=== PATIENT | female | born 1965 | race Caucasian/White ===

== ENCOUNTER 2016-12-29 12:33 | Emergency (ER) | payer SELFPAY ==
[~2016-12-29] VITALS: Ht 152.4 cm; Wt 75.5 kg
[2016-12-29 12:34] VITALS: BP 170/100; PULSE 110; RESP 20; TEMP 98.3; O2SAT 96
--- NOTE | 2016-12-29 12:54 | PD ---
HPI Chief Complaint: Cold / Flu Symptoms Time Seen by Provider: 12:54 Travel History International Travel<30 days: No Contact w/Intl Traveler<30days: No Traveled to known affect area: No History of Present Illness HPI 51-year-old female with history of diabetes, hypertension, COPD, presents to emergency department for evaluation of cough and chest congestion with associated back pain. Patient states over the last 4 months she has been diagnosed with both bronchitis and pneumonia. She states her symptoms persist and are beginning to worsen again. She recently traveled here from [place] and is homeless. She has had no fever or chills. No abdominal pain, nausea, vomiting. She has no other symptoms to report. PFSH Past Medical History Diabetes: Yes Respiratory: Yes Social History Alcohol Use: Yes Tobacco Use: Yes Substance Use: No Review of Systems Except as stated in HPI: all other systems reviewed are Neg Physical Exam Narrative GENERAL: Well-nourished female patient, ambulatory and in no acute distress SKIN: Warm and dry. HEAD: Atraumatic. Normocephalic. EYES: Pupils equal and round. No scleral icterus. No injection or drainage. ENT: No nasal bleeding or discharge. Mucous membranes pink and moist. NECK: Trachea midline. No JVD. CARDIOVASCULAR: Tachycardic rate and rhythm. No murmur appreciated. RESPIRATORY: No accessory muscle use. Diminished to auscultation. Breath sounds equal bilaterally. GASTROINTESTINAL: Abdomen soft, non-tender, nondistended. Hepatic and splenic margins not palpable. MUSCULOSKELETAL: No obvious deformities. No clubbing. No cyanosis. No edema. NEUROLOGICAL: Awake and alert. No obvious cranial nerve deficits. Motor grossly within normal limits. Normal speech. Data Data Last Documented VS Vital Signs Date Time Temp Pulse Resp B/P Pulse Ox O2 Delivery O2 Flow Rate FiO2 12/29/16 12:34 98.3 110 20 170/100 96 Room Air Orders Complete Blood Count With Diff (12/29/16 12:57) Basic Metabolic Panel (Bmp) (12/29/16 12:57) Urinalysis - C+S If Indicated (12/29/16 12:57) Chest, Single Ap (12/29/16 ) D-Dimer (12/29/16 12:57) Coag Profile (12/29/16 12:57) Labs Laboratory Tests Test 12/29/16 13:30 White Blood Count 5.7 TH/MM3 Red Blood Count 4.50 MIL/MM3 Hemoglobin 13.8 GM/DL Hematocrit 39.4 % Mean Corpuscular Volume 87.5 FL Mean Corpuscular Hemoglobin 30.7 PG Mean Corpuscular Hemoglobin 35.1 % Concent Red Cell Distribution Width 13.4 % Platelet Count 244 TH/MM3 Mean Platelet Volume 7.2 FL Neutrophils (%) (Auto) 47.3 % Lymphocytes (%) (Auto) 42.5 % Monocytes (%) (Auto) 6.8 % Eosinophils (%) (Auto) 2.8 % Basophils (%) (Auto) 0.6 % Neutrophils # (Auto) 2.7 TH/MM3 Lymphocytes # (Auto) 2.4 TH/MM3 Monocytes # (Auto) 0.4 TH/MM3 Eosinophils # (Auto) 0.2 TH/MM3 Basophils # (Auto) 0.0 TH/MM3 CBC Comment DIFF FINAL Differential Comment Prothrombin Time 10.1 SEC Prothromb Time International 0.9 RATIO Ratio Activated Partial 26.8 SEC Thromboplast Time D-Dimer Quantitative (PE/DVT) 0.22 MG/L FEU Sodium Level 140 MEQ/L Potassium Level 3.8 MEQ/L Chloride Level 105 MEQ/L Carbon Dioxide Level 27.2 MEQ/L Anion Gap 8 MEQ/L Blood Urea Nitrogen 14 MG/DL Creatinine 0.59 MG/DL Estimat Glomerular Filtration 107 ML/MIN Rate Random Glucose 82 MG/DL Calcium Level 9.1 MG/DL MDM Medical Decision Making Medical Screen Exam Complete: Yes Emergency Medical Condition: Yes Medical Record Reviewed: Yes Differential Diagnosis Pneumonia versus influenza versus PE versus COPD exacerbation Narrative Course 51-year-old female presents to emergency department for evaluation. Workup was initiated at triage. 1340 patient states that she does not like to wait for her workup to be complete. I explained the patient that this was only the beginning of her process and that we have no answers in regards to what might the wrong with her. I verbalize concern with her elevated heart rate, recent travel, and shortness of breath with associated back pain. I explained to her that there are multiple etiologies that could be causing her to have these symptoms. She states that she understands and she wants to go anyway. I explained her that if she left it would be AGAINST MEDICAL ADVICE with full understanding that she may worsen, become septic, or even . She verbalizes understanding and chooses to leave at this time. Diagnosis Primary Impression: Shortness of breath Additional Impressions: Cough Tachycardia Back pain Qualified Code: M54.6 - Acute right-sided thoracic back pain Left against medical advice Disposition: 07 AGAINST MEDICAL ADVICE Condition: Stable India Graff Dec 29, 2016 12:54
[2016-12-29 13:41] LABS: AUTOMATED NEUTROPHIL # 2.7 TH/MM3 (1.8-7.7); BASOPHIL % 0.6 % (0.0-2.0); EOSINOPHIL # 0.2 TH/MM3 (0-0.4); EOSINOPHIL % 2.8 % (0.0-4.0); HEMATOCRIT 39.4 % (35.0-46.0); HEMO FLAGS DIFF FINAL; LYMPH % 42.5 % (9.0-44.0); LYMPHOCYTE # 2.4 TH/MM3 (1.0-4.8); MEAN CELL VOLUME 87.5 FL (80.0-100.0); MEAN CORPUSCULAR HEMOGLOBIN 30.7 PG (27.0-34.0); MEAN CORPUSCULAR HGB CONC 35.1 % (32.0-36.0); MONO % 6.8 % (0.0-8.0); NEUT % 47.3 % (16.0-70.0); PLATELET COUNT 244 TH/MM3 (150-450); RED CELL DISTRIBUTION WIDTH 13.4 % (11.6-17.2); WHITE BLOOD COUNT 5.7 TH/MM3 (4.0-11.0)
--- NOTE | 2016-12-29 13:45 | RADRPT ---
EXAM DATE/TIME: 12/29/2016 13:29 [facility] COMPARISON: No previous studies available for comparison. INDICATIONS : Patient has had productive cough and was diagnosed with pneumonia four months ago and states she does n't feel she ever recovered from it. MEDICAL HISTORY : Hypertension. Diabetes mellitus type II. SURGICAL HISTORY : None. ENCOUNTER: Initial ACUITY: 4 - 6 months PAIN SCORE: 0/10 LOCATION: chest FINDINGS: A single view of the chest demonstrates the lungs to be symmetrically aerated without evidence of mas s, infiltrate or effusion. The cardiomediastinal contours are unremarkable. Osseous structures are intact. CONCLUSION: 1. No acute cardiopulmonary findings identified. Van Jose MD on December 29, 2016 at 13:43 Board Certified Radiologist. This report was verified electronically.
[2016-12-29 13:56] LABS: APTT (PATIENT) 26.8 SEC (24.3-30.1); INTERNATIONAL NORMALIZED RATIO 0.9 RATIO; PROTHROMBIN TIME - PATIENT 10.1 SEC (9.8-11.6)
[2016-12-29 13:58] LABS: BICARBONATE 27.2 MEQ/L (21.0-32.0); POTASSIUM 3.8 MEQ/L (3.5-5.1)
== END 2016-12-29 13:40 | disposition left against medical advice (07) ==
LOC: NETRI 12:33
DX: R06.02 Shortness of breath (principal); R05 Cough; R00.0 Tachycardia, unspecified; M54.6 Pain in thoracic spine
CPT/HCPCS: 71010; 80048; 85025; 85379; 85610; 85730; 99283

== ENCOUNTER 2017-01-25 22:58 | Emergency (ER) | payer OTHER ==
[~2017-01-25] VITALS: Ht 152.4 cm; Wt 85.0 kg
[2017-01-25 23:14] VITALS: BP 173/92; PULSE 96; RESP 18; TEMP 98.5; O2SAT 97
[2017-01-25] MEDS ORDERED: METF500T PO (23:19)
[2017-01-25] MEDS ORDERED: ZYPR5TAB PO (23:19)
[2017-01-25] MEDS ORDERED: LISI-515 PO (23:19)
[2017-01-25] MEDS ORDERED: CYMB60CA PO (23:19)
[2017-01-25 23:36] LABS: AUTOMATED NEUTROPHIL # 2.9 TH/MM3 (1.8-7.7); BASOPHIL # 0.1 TH/MM3 (0-0.2); BASOPHIL % 1.2 % (0.0-2.0); EOSINOPHIL # 0.2 TH/MM3 (0-0.4); EOSINOPHIL % 3.3 % (0.0-4.0); HEMATOCRIT 40.2 % (35.0-46.0); HEMO FLAGS DIFF FINAL; LYMPH % 37.7 % (9.0-44.0); LYMPHOCYTE # 2.2 TH/MM3 (1.0-4.8); MEAN CELL VOLUME 88.5 FL (80.0-100.0); MEAN CORPUSCULAR HEMOGLOBIN 30.5 PG (27.0-34.0); MEAN CORPUSCULAR HGB CONC 34.4 % (32.0-36.0); MONO % 8.6 % (0.0-8.0); NEUT % 49.2 % (16.0-70.0); PLATELET COUNT 270 TH/MM3 (150-450); RED BLOOD COUNT 4.53 MIL/MM3 (4.00-5.30); RED CELL DISTRIBUTION WIDTH 13.9 % (11.6-17.2); WHITE BLOOD COUNT 5.9 TH/MM3 (4.0-11.0)
[2017-01-25 23:45] LABS: ACETAMINOPHEN 3.2 MCG/ML (10.0-30.0); ALKALINE PHOSPHATASE 126 U/L (45-117); TOTAL BILIRUBIN ADULT 0.3 MG/DL (0.2-1.0)
[2017-01-25 23:47] LABS: BACTERIA, URINE RARE /hpf; BLOOD, URINE NEG (NEG); COMMENT (UR) CULTURE INDICATED; CULTURE IF INDICATED CULTURE INDICATED; GLUCOSE,URINE NEG (NEG); GRANULAR CAST, URINE 2 /lpf; HYALINE CAST, URINE 1 /lpf (RARE); KETONE, URINE NEG (NEG); MUCUS URINE FEW /lpf (OCC); NITRITE,URINE NEG (NEG); SQUAMOUS EPITHELIAL CELL URINE 5 /hpf (0-5); URINE COLOR YELLOW (YELLW/STRAW)
[2017-01-25 23:49] LABS: AMPHETAMINE, URINE NEG (NEG); BARBITURATES, URINE NEG (NEG); COCAINE, URINE POS (NEG)
--- NOTE | 2017-01-25 23:50 | PD ---
HPI Chief Complaint: Psychiatric Symptoms Time Seen by Provider: 23:48 Travel History International Travel<30 days: No Contact w/Intl Traveler<30days: No Traveled to known affect area: No History of Present Illness HPI Patient comes in under [place] act by police for being depressed and having suicidal thoughts. Patient states she tried hurting herself in the past approximately 10 years ago. Patient states she felt like hurting herself about a week ago but denies this currently. Patient she is just "tired of being tired " and "tired of being homeless". Patient states that she did smoke some crack cocaine today which she does not normally do. Patient denies any medical concerns. Denies any chest pain, fever, shortness of breath, abdominal pain, nausea, or vomiting PFSH Past Medical History Anxiety: Yes Dementia: Yes Diabetes: Yes Patient Takes Glucophage: Yes Diminished Hearing: No Hypertension: Yes Medical other: Yes (PTSD) Respiratory: Yes Tetanus Vaccination: < 5 Years Influenza Vaccination: No ?: Not Menopausal: Yes Past Surgical History Appendectomy: Yes Section: Yes Cholecystectomy: Yes Hysterectomy: Yes Tonsillectomy: Yes Social History Alcohol Use: No (SOBER 19YRS) Tobacco Use: Yes (1PPD) Substance Use: No ("CRACK TODAY AT 1730") Allergies-Medications (Allergen,Severity, Reaction): Coded Allergies: Erythromycin (Verified Allergy, Mild, RASH, 01/25/17) Sulfa (Verified Allergy, Mild, RASH, 01/25/17) Reported Meds & Prescriptions Reported Meds & Active Scripts Active Cipro (Ciprofloxacin HCl) 500 Mg Tab 500 Mg PO BID 7 Days Reported Zyprexa (Olanzapine) 5 Mg Tab 5 Mg PO DAILY Cymbalta DR (Duloxetine HCl) 60 Mg Capdr 60 Mg PO DAILY Lisinopril 20 Mg Tab 20 Mg PO DAILY Metformin (Metformin HCl) 500 Mg Tab 500 Mg PO DAILY With a meal Review of Systems Except as stated in HPI: all other systems reviewed are Neg Physical Exam Narrative GENERAL: Well-developed, overly nourished, in no acute distress, and non-ill appearing. SKIN: Warm and dry. HEAD: Atraumatic. Normocephalic. EYES: Pupils equal and round. EOMI. No scleral icterus. No injection or drainage. ENT: No nasal bleeding or discharge. Mucous membranes pink and moist. NECK: Trachea midline. Supple. No nuclear rigidity. CARDIOVASCULAR: Regular rate and rhythm. No murmur appreciated. RESPIRATORY: No accessory muscle use. No respiratory distress. Clear to auscultation. Breath sounds equal bilaterally. MUSCULOSKELETAL: No obvious deformities. No clubbing. No cyanosis. No edema. Full range of motion. NEUROLOGICAL: Awake and alert. No obvious cranial nerve deficits. Motor grossly within normal limits. Normal speech. PSYCHIATRIC: Appropriate mood and affect. Data Data Last Documented VS Vital Signs Date Time Temp Pulse Resp B/P Pulse Ox O2 Delivery O2 Flow Rate FiO2 01/25/17 23:19 18 01/25/17 23:14 98.5 96 173/92 97 Orders Complete Blood Count With Diff (01/25/17 23:12) Comprehensive Metabolic Panel (01/25/17 23:12) Urinalysis - C+S If Indicated (01/25/17 23:12) Psych Screen (01/25/17 23:12) Drug Screen, Random Urine (01/25/17 23:12) Alcohol (Ethanol) (01/25/17 23:12) Salicylates (Aspirin) (01/25/17 23:12) Tylenol (Acetaminophen) (01/25/17 23:12) Urine Culture (01/25/17 23:30) Acetaminophen (Tylenol) (01/26/17 00:00) Cephalexin (Keflex) (01/26/17 00:00) Labs Laboratory Tests Test 01/25/17 01/25/17 23:19 23:30 White Blood Count 5.9 TH/MM3 Red Blood Count 4.53 MIL/MM3 Hemoglobin 13.8 GM/DL Hematocrit 40.2 % Mean Corpuscular Volume 88.5 FL Mean Corpuscular Hemoglobin 30.5 PG Mean Corpuscular Hemoglobin 34.4 % Concent Red Cell Distribution Width 13.9 % Platelet Count 270 TH/MM3 Mean Platelet Volume 7.3 FL Neutrophils (%) (Auto) 49.2 % Lymphocytes (%) (Auto) 37.7 % Monocytes (%) (Auto) 8.6 % Eosinophils (%) (Auto) 3.3 % Basophils (%) (Auto) 1.2 % Neutrophils # (Auto) 2.9 TH/MM3 Lymphocytes # (Auto) 2.2 TH/MM3 Monocytes # (Auto) 0.5 TH/MM3 Eosinophils # (Auto) 0.2 TH/MM3 Basophils # (Auto) 0.1 TH/MM3 CBC Comment DIFF FINAL Differential Comment Sodium Level 141 MEQ/L Potassium Level 4.0 MEQ/L Chloride Level 105 MEQ/L Carbon Dioxide Level 27.5 MEQ/L Anion Gap 9 MEQ/L Blood Urea Nitrogen 20 MG/DL Creatinine 0.63 MG/DL Estimat Glomerular Filtration 99 ML/MIN Rate Random Glucose 131 MG/DL Calcium Level 9.7 MG/DL Total Bilirubin 0.3 MG/DL Aspartate Amino Transf 27 U/L (AST/SGOT) Alanine Aminotransferase 23 U/L (ALT/SGPT) Alkaline Phosphatase 126 U/L Total Protein 7.3 GM/DL Albumin 4.0 GM/DL Salicylates Level 3.4 MG/DL Acetaminophen Level 3.2 MCG/ML Ethyl Alcohol Level LESS THAN 3 MG/DL Urine Color YELLOW Urine Turbidity CLEAR Urine pH 5.0 Urine Specific [place] 1.023 Urine Protein NEG mg/dL Urine Glucose (UA) NEG mg/dL Urine Ketones NEG mg/dL Urine Occult Blood NEG Urine Nitrite NEG Urine Bilirubin NEG Urine Urobilinogen LESS THAN 2.0 MG/DL Urine Leukocyte Esterase MOD Urine RBC 4 /hpf Urine WBC 24 /hpf Urine Squamous Epithelial 5 /hpf Cells Urine Bacteria RARE /hpf Urine Hyaline Casts 1 /lpf Urine Granular Casts 2 /lpf Urine Mucus FEW /lpf Microscopic Urinalysis Comment CULTURE INDICATED Urine Opiates Screen NEG Urine Barbiturates Screen NEG Urine Amphetamines Screen NEG Urine Benzodiazepines Screen POS Urine Cocaine Screen POS Urine Cannabinoids Screen NEG MDM Medical Decision Making Medical Screen Exam Complete: Yes Emergency Medical Condition: Yes Differential Diagnosis Homicidal, suicidal, electrolyte abnormality, homeless, depression, other Narrative Course Patient was seen and examined. Labs were obtained and reviewed. Patient was given antibiotics for her urinary tract infection and a prescription was provided. Patient medically cleared for further treatment and evaluation by psych. Final disposition per psych. Diagnosis Primary Impression: UTI (urinary tract infection) Qualified Code: N39.0 - Urinary tract infection with hematuria, site unspecified Scripts Ciprofloxacin (Cipro)500 Mg [id number] Mg PO BID 7 Days Ref 0 Prov:Carol Quezada MD 01/26/17 Condition: Stable Bill Uribe Jan 25, 2017 23:49
[2017-01-25 23:52] LABS: ALT (GPT) 23 U/L (10-53); ANION GAP 9 MEQ/L (5-15); AST (GOT) 27 U/L (15-37); BICARBONATE 27.5 MEQ/L (21.0-32.0); BLOOD UREA NITROGEN 20 MG/DL (7-18); CHLORIDE 105 MEQ/L (98-107); GLOMERULAR FILTRATION RATE 99 ML/MIN (>89); SODIUM (NA) 141 MEQ/L (136-145)
[2017-01-26] MEDS ORDERED: CEPHALEXIN MONOHYDRATE 500 MG CAP PO ONE
[2017-01-26] MEDS ORDERED: ACETAMINOPHEN 500 MG CPLT PO ONE
[2017-01-26] MEDS ORDERED: CIPR-9 PO (00:01)
[2017-01-26 06:13] VITALS: BP 139/69; PULSE 99; RESP 19; O2SAT 98
[2017-01-26] MEDS ORDERED: ACETAMINOPHEN 325 MG TAB PO ONE (09:15)
[2017-01-27] MEDS ORDERED: ACETAMINOPHEN 325 MG TAB PO PRN (22:15)
[2017-01-27] MEDS ORDERED: LORazepam 1 MG TAB PO PRN (22:15)
[2017-01-27] MEDS ORDERED: diphenhydrAMINE HCL 50 MG/ML VIAL - HS PRN IM (22:15)
[2017-01-27] MEDS ORDERED: LORazepam 2 MG/ML VIAL IM PRN (22:15)
[2017-01-27] MEDS ORDERED: ALUMINUM/MAGNESIUM/SIMETH 30 ML CUP PO PRN (22:15)
[2017-01-27] MEDS ORDERED: HALOPERIDOL LACTATE 5 MG/ML AMP IM ONE (22:15)
[2017-01-27] MEDS ORDERED: diphenhydrAMINE HCL 50 MG CAP - HS PRN PO (22:15)
[2017-01-27] MEDS ORDERED: LORazepam 2 MG/ML VIAL IM ONE (22:15)
[2017-01-27] MEDS ORDERED: MAGNESIUM HYDROXIDE SUSP 30 ML CUP PO PRN (22:15)
[2017-01-28] MEDS ORDERED: LISINOPRIL 20 MG TAB PO SCH (09:00)
[2017-01-28] MEDS ORDERED: OLANZapine 5 MG TAB PO SCH (09:00)
[2017-01-28] MEDS ORDERED: DULoxetine HCl DR 60 MG CAP PO SCH (09:00)
[2017-01-28] MEDS ORDERED: NICOTINE 21 MG/24 HR PATCH T-DERMAL SCH (09:00)
[2017-01-28] MEDS ORDERED: REMOVE OLD NICOTINE PATCH T-DERMAL SCH (21:00)
== END 2017-01-26 12:35 ==
LOC: NEDAMB 22:58 → NEPJ 01-26 12:35
DX: N39.0 Urinary tract infection, site not specified (principal); E11.9 Type 2 diabetes mellitus without complications; I10 Essential (primary) hypertension; F17.210 Nicotine dependence, cigarettes, uncomplicated
CPT/HCPCS: 80053; 80307; 81001; 85025; 87086; 99285

== ENCOUNTER 2017-01-27 12:01 | Inpatient (IN) | payer MEDICAID ==
[~2017-01-27] VITALS: Ht 152.4 cm; Wt 92.4 kg
[~2017-01-27 12:01] MED LIST: CIPR-9 PO; CYMB60CA PO; LISI-515 PO; METF500T PO; ZYPR5TAB PO
[2017-01-27 12:02] VITALS: BP 173/98; PULSE 106; RESP 24; TEMP 98.1; O2SAT 94
--- NOTE | 2017-01-27 13:50 | PD ---
HPI Chief Complaint: Psychiatric Symptoms Time Seen by Provider: 13:50 Travel History International Travel<30 days: No Contact w/Intl Traveler<30days: No Traveled to known affect area: No History of Present Illness HPI 51-year-old female with a history of hypertension, anxiety, depression, PTSD and mood disorder presents to the emergency department requesting psychiatric evaluation. The patient states that she has been off of her Zyprexa and Cymbalta for the past week and that she has been having suicidal and homicidal ideations. States that she was seen over at [facility] but was told that she was a cocaine abuser and was not given any refills of her medications. She is very frustrated as she does not abuse drugs and really wants her medications refilled. She recently moved here from the area from [place]. She denies any medical complaints. Denies any fever, chills, nausea, vomiting, abdominal pain , chest pain, shortness of breath. Denies any attempts to harm herself. Denies any alcohol or drug use. No other complaints. PFSH Past Medical History Anxiety: Yes Depression: Yes Dementia: Yes Diabetes: Yes Patient Takes Glucophage: Yes Diminished Hearing: No Hypertension: Yes Respiratory: Yes Tetanus Vaccination: < 5 Years Influenza Vaccination: Yes ?: Not Menopausal: Yes Past Surgical History Appendectomy: Yes Section: Yes Cholecystectomy: Yes Hysterectomy: Yes Tonsillectomy: Yes Social History Alcohol Use: No (SOBER 19YRS) Tobacco Use: Yes (1PPD) Substance Use: Yes ("smoked crack the other day") Allergies-Medications (Allergen,Severity, Reaction): Coded Allergies: Erythromycin (Verified Allergy, Mild, RASH, 01/25/17) Sulfa (Verified Allergy, Mild, RASH, 01/25/17) Reported Meds & Prescriptions Reported Meds & Active Scripts Active Reported Zyprexa (Olanzapine) 5 Mg Tab 5 Mg PO DAILY Cymbalta DR (Duloxetine HCl) 60 Mg Capdr 60 Mg PO DAILY Lisinopril 20 Mg Tab 20 Mg PO DAILY Metformin (Metformin HCl) 500 Mg Tab 500 Mg PO DAILY With a meal Review of Systems Except as stated in HPI: all other systems reviewed are Neg Physical Exam Narrative GENERAL: Well-nourished and well-developed pleasant female patient in no acute distress who is nontoxic appearing. SKIN: Warm and dry. HEAD: Normocephalic and atraumatic. EYES: No injection, drainage, or hyphema noted. PERRLA. EOMI. ENT: No nasal drainage noted. Oropharynx is clear. NECK: Supple and the trachea is midline. CARDIOVASCULAR: Regular rate and rhythm. RESPIRATORY: Breath sounds are equal bilaterally with no accessory muscle use, wheezing, rhonchi, or crackles. GASTROINTESTINAL: Abdomen is soft, non-tender, and nondistended. MUSCULOSKELETAL: No obvious deformities, swelling, cyanosis, or ecchymosis is present throughout the upper and lower extremities. Patient has full range of motion without any signs of neurovascular compromise. NEUROLOGICAL: Awake, alert, and oriented. Normal speech and gait. Cranial nerves are grossly intact. Data Data Last Documented VS Vital Signs Date Time Temp Pulse Resp B/P Pulse Ox O2 Delivery O2 Flow Rate FiO2 01/27/17 15:04 88 18 168/95 96 Room Air 01/27/17 12:02 98.1 Orders Complete Blood Count With Diff (01/27/17 13:49) Comprehensive Metabolic Panel (01/27/17 13:49) Psych Screen (01/27/17 13:49) Drug Screen, Random Urine (01/27/17 13:49) Alcohol (Ethanol) (01/27/17 13:49) Diet Regular Basic (01/27/17 Dinner) Labs Laboratory Tests Test 01/27/17 01/27/17 13:54 14:25 Urine Opiates Screen NEG Urine Barbiturates Screen NEG Urine Amphetamines Screen NEG Urine Benzodiazepines Screen POS Urine Cocaine Screen POS Urine Cannabinoids Screen NEG White Blood Count 5.0 TH/MM3 Red Blood Count 4.51 MIL/MM3 Hemoglobin 13.9 GM/DL Hematocrit 40.1 % Mean Corpuscular Volume 88.9 FL Mean Corpuscular Hemoglobin 30.7 PG Mean Corpuscular Hemoglobin 34.6 % Concent Red Cell Distribution Width 14.0 % Platelet Count 253 TH/MM3 Mean Platelet Volume 7.0 FL Neutrophils (%) (Auto) 50.5 % Lymphocytes (%) (Auto) 38.5 % Monocytes (%) (Auto) 7.7 % Eosinophils (%) (Auto) 2.5 % Basophils (%) (Auto) 0.8 % Neutrophils # (Auto) 2.5 TH/MM3 Lymphocytes # (Auto) 1.9 TH/MM3 Monocytes # (Auto) 0.4 TH/MM3 Eosinophils # (Auto) 0.1 TH/MM3 Basophils # (Auto) 0.0 TH/MM3 CBC Comment DIFF FINAL Differential Comment Sodium Level 139 MEQ/L Potassium Level 3.6 MEQ/L Chloride Level 101 MEQ/L Carbon Dioxide Level 30.1 MEQ/L Anion Gap 8 MEQ/L Blood Urea Nitrogen 22 MG/DL Creatinine 0.52 MG/DL Estimat Glomerular Filtration 124 ML/MIN Rate Random Glucose 79 MG/DL Calcium Level 10.0 MG/DL Total Bilirubin 0.4 MG/DL Aspartate Amino Transf 16 U/L (AST/SGOT) Alanine Aminotransferase 23 U/L (ALT/SGPT) Alkaline Phosphatase 94 U/L Total Protein 7.0 GM/DL Albumin 3.9 GM/DL Ethyl Alcohol Level LESS THAN 3 MG/DL [facility] Medical Decision Making Medical Screen Exam Complete: Yes Emergency Medical Condition: Yes Differential Diagnosis Differential: Depression versus adjustment reaction versus anxiety versus PTSD versus psychosis NOS versus mood disorder NOS versus substance induced mood disorder versus ODD versus adjustment reaction versus schizophrenia versus bipolar disorder versus schizoaffective versus electrolyte abnormality Narrative Course Patient presents under a Tucker act. Physical examination and vital signs are essentially unremarkable. Patient has no medical complaints to report. He moved to the area and is out of her medications and is homeless. She is requesting something to eat. Psych screen has been ordered. CBC and CMP are unremarkable. EtOH is less than 3. Urine tox is positive for benzodiazepines and cocaine. The patient is medically cleared for psychiatric evaluation and disposition. Diagnosis Primary Impression: Substance induced mood disorder Merced Johnson Jan 27, 2017 13:50
[2017-01-27 13:54] VITALS: PULSE 105; RESP 20; O2SAT 96
[2017-01-27 14:41] LABS: AMPHETAMINE, URINE NEG (NEG); BARBITURATES, URINE NEG (NEG); COCAINE, URINE POS (NEG)
[2017-01-27 14:54] LABS: AUTOMATED NEUTROPHIL # 2.5 TH/MM3 (1.8-7.7); BASOPHIL % 0.8 % (0.0-2.0); EOSINOPHIL # 0.1 TH/MM3 (0-0.4); EOSINOPHIL % 2.5 % (0.0-4.0); HEMATOCRIT 40.1 % (35.0-46.0); HEMO FLAGS DIFF FINAL; LYMPH % 38.5 % (9.0-44.0); LYMPHOCYTE # 1.9 TH/MM3 (1.0-4.8); MEAN CELL VOLUME 88.9 FL (80.0-100.0); MEAN CORPUSCULAR HEMOGLOBIN 30.7 PG (27.0-34.0); MEAN CORPUSCULAR HGB CONC 34.6 % (32.0-36.0); MONO % 7.7 % (0.0-8.0); NEUT % 50.5 % (16.0-70.0); PLATELET COUNT 253 TH/MM3 (150-450); RED BLOOD COUNT 4.51 MIL/MM3 (4.00-5.30)
[2017-01-27 15:04] VITALS: BP 168/95; PULSE 88; RESP 18; O2SAT 96
[2017-01-27 15:14] LABS: ALT (GPT) 23 U/L (10-53); ANION GAP 8 MEQ/L (5-15); AST (GOT) 16 U/L (15-37); BICARBONATE 30.1 MEQ/L (21.0-32.0); BLOOD UREA NITROGEN 22 MG/DL (7-18); CHLORIDE 101 MEQ/L (98-107); GLOMERULAR FILTRATION RATE 124 ML/MIN (>89); POTASSIUM 3.6 MEQ/L (3.5-5.1); SODIUM (NA) 139 MEQ/L (136-145)
[2017-01-27 15:16] LABS: ALKALINE PHOSPHATASE 94 U/L (45-117); TOTAL BILIRUBIN ADULT 0.4 MG/DL (0.2-1.0)
[2017-01-27] MEDS ORDERED: ACETAMINOPHEN 500 MG CPLT PO ONE (17:15)
[2017-01-27 17:58] VITALS: BP 109/75; PULSE 99; RESP 18; O2SAT 97
[2017-01-27] MEDS ORDERED: OLANZapine 10 MG TAB PO ONE (18:00)
[2017-01-27] MEDS ORDERED: IBUPROFEN 800 MG TAB PO ONE (19:15)
[2017-01-27] MEDS ORDERED: OLANZapine IM 10 MG VIAL IM ONE (20:45)
[2017-01-27] MEDS ORDERED: HALOPERIDOL LACTATE 5 MG/ML AMP IM SCH (21:35)
[2017-01-27] MEDS ORDERED: LORazepam 2 MG/ML VIAL IM SCH (21:35)
[2017-01-27 22:13] VITALS: RESP 19
[2017-01-27 22:30] VITALS: BP 146/97; PULSE 100; RESP 18; TEMP 97.8; O2SAT 99
[2017-01-27] MEDS ORDERED: MAGNESIUM HYDROXIDE SUSP 30 ML CUP PO PRN (23:15)
[2017-01-27] MEDS ORDERED: diphenhydrAMINE HCL 50 MG/ML VIAL - HS PRN IM (23:15)
[2017-01-27] MEDS ORDERED: ALUMINUM/MAGNESIUM/SIMETH 30 ML CUP PO PRN (23:15)
[2017-01-27] MEDS ORDERED: LORazepam 2 MG/ML VIAL IM PRN (23:15)
[2017-01-27] MEDS: diphenhydrAMINE HCL 50 MG CAP - HS PRN PO (23:23)
[2017-01-27] MEDS: LORazepam 1 MG TAB PO PRN (23:23)
[2017-01-28 06:02] VITALS: BP 156/63; PULSE 100; RESP 18; TEMP 98; O2SAT 99
[2017-01-28 07:07] LABS: ANION GAP 7 MEQ/L (5-15); BICARBONATE 32.4 MEQ/L (21.0-32.0); CHLORIDE 103 MEQ/L (98-107); GLOMERULAR FILTRATION RATE 127 ML/MIN (>89); MAGNESIUM 1.6 MG/DL (1.5-2.5); POTASSIUM 4.1 MEQ/L (3.5-5.1); SODIUM (NA) 142 MEQ/L (136-145)
[2017-01-28 07:33] LABS: BLOOD UREA NITROGEN 23 MG/DL (7-18); FREE T4 0.88 NG/DL (0.76-1.46); HDL CHOLESTEROL 57.9 MG/DL (40.0-60.0); LDL CHOLESTEROL 113 MG/DL (0-99); URIC ACID 4.4 MG/DL (2.6-6.0)
[2017-01-28 07:41] LABS: CREATINE KINASE 55 U/L (26-192)
[2017-01-28] MEDS: DULoxetine HCl DR 60 MG CAP PO SCH (08:50)
[2017-01-28] MEDS: LISINOPRIL 20 MG TAB PO SCH (08:51)
[2017-01-28] MEDS: NICOTINE 21 MG/24 HR PATCH T-DERMAL SCH (08:51)
[2017-01-28] MEDS: LORazepam 1 MG TAB PO PRN ×3 (08:55→17:50)
[2017-01-28] MEDS ORDERED: metFORMIN HCL 500 MG TAB PO SCH (09:00)
--- NOTE | 2017-01-28 12:07 | HHI.HP ---
Provisional Diagnosis Admission Date Jan 27, 2017 at 21:55 Certification of Person's Competence To Provide Express and Informed Consent I have personally examined Claire Phelps , a person being served at [facility] on, Jan 28, 2017 12:07. Express and informed consent means consent voluntarily given in writing, by a competent person, after sufficient explanation and disclosure of the subject matter involved to enable the person to make a knowing and willful decision without any element of force, fraud, deceit, duress, or other form of constraint or coercion. This person is 18 years of age or older, is not now known to be incompetent to consent to treatment with a guardian advocate, and does not have a health care surrogate or proxy currently making medical treatment decisions. I have found this person to be one of the following: [] Competent to provide express and informed consent, as defined above, for voluntary admission to this facility and is competent to provide express and informed consent for treatment. He/she has the consistent capacity to make well reasoned, willful, and knowing decisions concerning his or her medical or mental health treatment. The person fully and consistently understands the purpose of the admission for examination/placement and is fully capable of personally exercising all rights assured [place] [] Incompetent to provide express and informed consent to voluntary admission, and this is incompetent to provide express and informed consent to treatment. The person must be transferred to involuntary status and a petition for a guardian advocate filed with the Circuit Court. [] Refusing to provide express and informed consent to voluntary admission but is competent to provide express and informed consent for treatment. The person must be discharged or transferred to involuntary status. Form shall be completed within 24 hours of a person's arrival at the receiving facility and filed in the clinical record of each person: 1. Admitted on a voluntary basis 2. Permitted to provide express and informed consent to his/her own treatment 3. Allowed to transfer from involuntary to voluntary status 4. Prior to permitting a person to consent to his or her own treatment after having been previously found incompetent to consent to treatment. Past Family Social History Coded Allergies: Erythromycin (Verified Allergy, Mild, RASH, 01/25/17) Sulfa (Verified Allergy, Mild, RASH, 01/25/17) Reported Medications Olanzapine (Zyprexa)5 Mg Tab5 Mg PO DAILY #30 TAB Ref 0 01/25/[address] (Cymbalta DR)60 Mg Capdr60 Mg PO DAILY #30 CAP Ref 0 01/25/17 Lisinopril 20 Mg Tab20 Mg PO DAILY #30 TAB Ref 0 01/25/17 Metformin 500 Mg [id number] Mg PO DAILY #30 TAB Ref 0 With a meal 01/25/17 Discontinued Scripts Ciprofloxacin (Cipro)500 Mg [id number] Mg PO BID 7 Days Ref 0 Prov:Carol Quezada MD 01/26/17 Current Medications Medications (Trade) Dose Ordered Sig/Diana Route Start Time Stop Time Status Last Admin (Glucophage) 500 mg DAILY PO 01/28/17 09:00 01/28/17 08:50 (Prinivil) 20 mg DAILY PO 01/28/17 09:00 01/28/17 08:51 (Cymbalta Dr) 60 mg DAILY PO 01/28/17 09:00 01/28/17 08:50 (Ativan) 1 mg Q6H PRN PO 01/27/17 23:15 01/28/17 08:55 (Ativan Inj) 1 mg Q6H PRN IM 01/27/17 23:15 (Benadryl) 50 mg HS PRN PO 01/27/17 23:15 01/27/17 23:23 (Benadryl Inj) 50 mg HS PRN IM 01/27/17 23:15 (Tylenol) 650 mg Q4H PRN PO 01/27/17 23:15 (Milk Of Magnesia Liq) 30 ml DAILY PRN PO 01/27/17 23:15 (Mag-Al Plus Susp Liq) 30 ml Q6H PRN PO 01/27/17 23:15 (Habitrol 21 Mg Patch.24 Hr) 1 patch DAILY T-DERMAL 01/28/17 09:00 Miscellaneous Information 1 HS T-DERMAL 01/28/17 21:00 Physical Exam Vital Signs Vital Signs Date Time Temp Pulse Resp B/P Pulse Ox O2 Delivery O2 Flow Rate FiO2 01/28/17 06:02 98.0 100 18 156/63 99 01/27/17 22:13 Room Air Assessment & Plan Assessment & Plan Estimated LOS: Alcon Dixon MD Jan 28, 2017 12:07
[2017-01-28] MEDS ORDERED: LORazepam 2 MG TAB PO PRN (12:15)
[2017-01-28] MEDS ORDERED: FLUMAZENIL 0.5 MG/5 ML VIAL IV PUSH PRN (12:15)
[2017-01-28] MEDS ORDERED: LORazepam 2 MG/ML VIAL IV PUSH PRN ×4 (12:15)
[2017-01-28] MEDS: hydrOXYzine HCL 50 MG TAB PO PRN (12:24)
--- NOTE | 2017-01-28 12:42 | MH ---
cc: BRYONTESSY DATE OF ADMISSION 01/27/2017 ADMISSION DIAGNOSES 1. Adjustment disorder with disturbance of emotions and conduct, F43.25 2. Cocaine abuse, F14.10 3. Rule out borderline intellectual functioning. LEGAL STATUS The patient is presently capacitated to consent for medications and for admission. Voluntary status. HISTORY OF PRESENT ILLNESS Ms. Phelps is a 51-year-old female with a reported history of depression and anxiety who presented to the emergency department requesting psychiatric evaluation. She told the ED provider that she had been off of her Zyprexa and Cymbalta for a week and was having suicidal and homicidal ideations. She apparently went to [facility] and had a poor interaction with a staff member there and so came to our ED instead. Reviewing the electronic medical record, I see no prior psychiatric contact within our system. I do see that the patient was somewhat agitated overnight and required Zyprexa p.r.n. The patient seen and examined with nurse. Chart reviewed. Case discussed with nursing staff. 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 She tells me "I just need to get back on my meds." Her speech is a little bit pressured and rambling and she complains of feeling somewhat anxious. She also complains of irritability. She does not describe any suicidal or homicidal ideation at this time, but says that she might have been experiencing some of these last night. She is fairly benzodiazepine seeking and says that the Xanax that she used to take really helped with this problem. She denies any audiovisual hallucinations and I can elicit no delusional beliefs. The remainder of the psychiatric ROS is negative. PAST PSYCHIATRIC HISTORY The patient reports a history of depression and anxiety. She previously followed at [facility], but wants to get a new psychiatrist. She says that she has done the best in the past on Zyprexa, but has also tried Abilify and loxapine. Unclear regarding prior psychiatric hospitalizations, the patient is a fairly poor historian. The patient removed reports one remote suicide attempt by trying to cut herself with a butter knife. FAMILY HISTORY The patient reports anxiety and depression runs in her family and her mother, sister and brother. She has another brother who has been diagnosed with Down's syndrome. CHEMICAL DEPENDENCY HISTORY The patient admits to occasional use of benzodiazepines and also says that she "dabbles" in cocaine. SOCIAL HISTORY The patient is presently homeless. She says that her mother when the patient was 17 years old. She has a tenth grade education but subsequently got her GED. She is . She has two children. Denies any or legal history. Denies any access to guns or firearms. PAST MEDICAL HISTORY Includes a history of: 1. Type 2 diabetes 2. COPD 3. ANANT and macular degeneration. REVIEW OF SYSTEMS No reported headache, vision or hearing changes, chest pain, shortness of breath, bowel issues. The patient does complain of some urinary malodor, but denies any dysuria or other urinary symptoms. PHYSICAL EXAMINATION A physical examination was completed in the emergency room by the ER staff. On my examination today, the patient appears to be well-nourished and well-developed and in no acute physical distress. No motor abnormalities noted. VITAL SIGNS: Reviewed. Temperature is 98, pulse is 100, respirations 18, blood pressure 156/63, pulse oximetry 99% on room air. LABORATORIES REVIEWED: CBC unremarkable. CMP rather fairly unremarkable. Vitamin D level somewhat low at 27.4. TFT is okay. Toxicology was positive for cocaine and benzodiazepines. Alcohol level was undetectable. MENTAL STATUS EXAM The patient is in hospital gown. She is somewhat disheveled, but appears to be maintaining basic hygiene. She is awake and alert and oriented to person and hospital at least. No motor abnormalities noted. No benzodiazepine withdrawal signs noted. Speech is somewhat pressured and rambling. Language and fund of knowledge seem reduced for age. Mood is somewhat irritable and affect is anxious. Thought process linear, but somewhat childlike. No loosening of associations. No evident delusions. Denies audiovisual hallucinations. Denies suicidal or homicidal ideation at this time, but was apparently threatening the same yesterday. Insight and judgment are poor. ASSESSMENT/PLAN This is a 51-year-old female with psychiatric history as noted above who presents on a voluntary basis for psychiatric evaluation. The patient seems to have some degree of borderline intellectual functioning or intellectual disability, but complains chiefly of irritability and anxiety. She says that she has also been using cocaine. 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 She says that she has done well in the past on Zyprexa. I will admit the patient briefly to the inpatient psychiatric unit for safety, observation and stabilization. Admit inpatient. Voluntary status. Consult to the hospitalist. I will check another urinalysis as the patient reports urinary malodor. Initiate Zyprexa 10 mg at bedtime. Continue Cymbalta 60 mg daily. We settle on Atarax as needed for anxiety, Benadryl as needed for sleep. CIWA with Ativan for the management of any withdrawal from benzodiazepines. Seizure and fall precautions. Vitals every shift. Counselor to see. Disposition planning. Estimated length of stay: 3-5 days. Tessy GAMING /12:15 PM /12:31 PM TANG
[2017-01-28 13:54] LABS: BLOOD, URINE NEG (NEG); COMMENT (UR) CULT NOT INDICATED; CULTURE IF INDICATED CULT NOT INDICATED; GLUCOSE,URINE NEG (NEG); KETONE, URINE NEG (NEG); MUCUS URINE FEW /lpf (OCC); NITRITE,URINE NEG (NEG); PH, URINE 6.5 (5.0-8.5); SQUAMOUS EPITHELIAL CELL URINE 1 /hpf (0-5); URINE COLOR LIGHT-YELLOW (YELLW/STRAW)
--- NOTE | 2017-01-28 14:29 | PD.CONS ---
HPI [facility] Consult Requested By Dr. Rodriguez Reason for Consult Medical management Primary Care Physician No Primary Care Physician Diagnoses: History of Present Illness 51-year-old female with a reported history of depression, PTSD, hypertension, COPD, anxiety, depression, diabetes admitted to the psychiatric unit. On presentation to the emergency room, she reported suicidal ideation. The patient is seen in the psychiatric unit. She does not have any specific complaint at this time. She reports she was treated for UTI 3 days ago. She complained of concentrated urine. However Currently denies any dysuria, suprapubic pain, or fever. The patient apparently was positive for benzodiazepine and cocaine on a toxicology screen. She has not been compliant with any of her chronic medications. Currently she denies chest pain or shortness of breath. She inquired about her abdominal hernia and wondered if she could get it fixed while she is here. She denies any abdominal pain or problems with constipation or diarrhea. Review of Systems Psychiatric: COMPLAINS OF: Mood changes, Suicidal Ideation Past Family Social History Allergies: Coded Allergies: Erythromycin (Verified Allergy, Mild, RASH, 01/25/17) Sulfa (Verified Allergy, Mild, RASH, 01/25/17) Past Medical History depression, PTSD, hypertension, COPD, anxiety, depression, diabetes Past Surgical History Cholecystectomy C-sections 2 Partial hysterectomy Reported Medications Reported Meds & Active Scripts Active Reported Zyprexa (Olanzapine) 5 Mg Tab 5 Mg PO DAILY Cymbalta DR (Duloxetine HCl) 60 Mg Capdr 60 Mg PO DAILY Lisinopril 20 Mg Tab 20 Mg PO DAILY Metformin (Metformin HCl) 500 Mg Tab 500 Mg PO DAILY With a meal Family History Mother from colon cancer Father has history of coronary artery disease. Social History Patient admits to smoking one pack of cigarettes per day. She denies alcohol. She admits to using crack cocaine "the other day". Physical Exam Vital Signs Vital Signs Date Time Temp Pulse Resp B/P Pulse Ox O2 Delivery O2 Flow Rate FiO2 01/28/17 06:02 98.0 100 18 156/63 99 01/27/17 22:30 97.8 100 18 146/97 99 01/27/17 22:13 19 Room Air 01/27/17 17:58 99 18 109/75 97 Room Air 01/27/17 15:04 88 18 168/95 96 Room Air Physical Exam GENERAL: Obese female, somewhat somnolent but have pressured speech once she is awake. SKIN: No rashes, ecchymoses or lesions. Cool and dry. HEAD: Atraumatic. Normocephalic. No temporal or scalp tenderness. EYES: Pupils equal round and reactive. Extraocular motions intact. No scleral icterus. No injection or drainage. ENT: Nose without drainage. Uvula midline. Airway patent. NECK: Trachea midline. No JVD or lymphadenopathy. Supple, nontender, no meningeal signs. CARDIOVASCULAR: Regular rate and rhythm without murmurs, gallops, or rubs. RESPIRATORY: Clear to auscultation. Breath sounds equal bilaterally. No wheezes , rales, or rhonchi. GASTROINTESTINAL: Abdomen soft, non-tender, nondistended. She has a large abdominal wall hernia.No guarding. MUSCULOSKELETAL: Extremities without clubbing, cyanosis, or edema. No joint tenderness, effusion, or edema noted. No calf tenderness. Negative Homans sign bilaterally. NEUROLOGICAL: Awake and alert. Cranial nerves II through XII intact. Motor and sensory grossly within normal limits. Five out of 5 muscle strength in all muscle groups. Normal speech. PSYCH: Pressured speech. Laboratory Laboratory Tests Test 01/28/17 01/28/17 06:14 12:42 Sodium Level 142 Potassium Level 4.1 Chloride Level 103 Carbon Dioxide Level 32.4 Anion Gap 7 Blood Urea Nitrogen 23 Creatinine 0.51 Estimat Glomerular Filtration 127 Rate Random Glucose 114 Uric Acid 4.4 Calcium Level 9.7 Phosphorus Level 4.7 Magnesium Level 1.6 Total Creatine Kinase 55 Triglycerides Level 136 Cholesterol Level 198 LDL Cholesterol 113 HDL Cholesterol 57.9 Cholesterol/HDL Ratio 3.41 Vitamin B12 Level 255 25-Hydroxy Vitamin D Total 27.4 Free Thyroxine 0.88 Thyroid Stimulating Hormone 1.440 3rd Gen Rapid Plasma Reagin NON-REACTIVE Urine Color LIGHT-YELLOW Urine Turbidity CLEAR Urine pH 6.5 Urine Specific [place] 1.014 Urine Protein NEG Urine Glucose (UA) NEG Urine Ketones NEG Urine Occult Blood NEG Urine Nitrite NEG Urine Bilirubin NEG Urine Urobilinogen LESS THAN 2.0 Urine Leukocyte Esterase NEG Urine WBC LESS THAN 1 Urine Squamous Epithelial 1 Cells Urine Mucus FEW Microscopic Urinalysis Comment CULT NOT INDICATED Result Diagram: 01/27/17 1425 01/28/17 0614 Assessment and Plan Problem List: (1) Substance induced mood disorder ICD Code: F19.94 Status: Acute Assessment and Plan 51-year-old female with: PTSD/substance-induced mood disorder: - Management per psychiatry. - Counseled patient about cessation of illicit drugs. Hypertension: - Resume home dose lisinopril. Monitor BP trend. - Clonidine as needed Diabetes: - Resume home dose metformin. - Check hemoglobin A1c Reported history of COPD: Not in exacerbation - breathing treatments as needed. Tobacco abuse: - Nicotine patch as needed - Patient counseled about tobacco use cessation. Thank you for allowing me to participate in the care of Mrs. Berman. will continue to follow Hanh Barrera MD Jan 28, 2017 14:29
[2017-01-28] MEDS ORDERED: OLANZapine IM 10 MG VIAL IM ONE (15:15)
[2017-01-28] MEDS ORDERED: cloNIDine HCL 0.1 MG TAB PO PRN (16:00)
[2017-01-28 17:00] VITALS: BP 114/64; PULSE 110; RESP 18; TEMP 98.4
[2017-01-28 17:38] LABS: HEMOGLOBIN A1a 1.1 %; HEMOGLOBIN A1b 1.9 %; HEMOGLOBIN Ao 84.2 %
[2017-01-28] MEDS: REMOVE OLD NICOTINE PATCH T-DERMAL SCH (21:00)
[2017-01-28] MEDS: OLANZapine 10 MG TAB PO SCH (21:42)
[2017-01-28] MEDS: diphenhydrAMINE HCL 50 MG CAP - HS PRN PO (21:42)
[2017-01-29 06:34] VITALS: BP 115/61; PULSE 17; RESP 18; TEMP 97.2; O2SAT 93
[2017-01-29] MEDS: NICOTINE 21 MG/24 HR PATCH T-DERMAL SCH (09:00)
[2017-01-29] MEDS: LISINOPRIL 20 MG TAB PO SCH (09:00)
[2017-01-29] MEDS: metFORMIN HCL 500 MG TAB PO SCH (09:51)
[2017-01-29] MEDS: DULoxetine HCl DR 60 MG CAP PO SCH (09:53)
--- NOTE | 2017-01-29 12:54 | HHI.PYPN ---
Subjective Remarks Pt seen and discussed with staff. She reports that she is tolerating medications without side effects. She reports feeling less anxious and less mood swings with olanzapine. Pt is cooperative but labile. No agitation or disruptive behavior on unit. Disheveled and isolative. Review of Systems Psychiatric: COMPLAINS OF: Mood changes Objective Alert: Yes [place]: Person, Place, Date Mood: Depressed Affect: Labile Memory Intact: Immediate, Recent Hallucinations: Other (none) Delusions: No Delusion Type: Other (none elicited) Suicidal: Ideation (denies) Homicidal: Ideation (denies) Insight/Judgement fair Vitals/IOs Vital Signs Date Time Temp Pulse Resp B/P Pulse Ox O2 Delivery O2 Flow Rate FiO2 01/29/17 06:34 97.2 17 18 115/61 93 01/27/17 22:13 Room Air Assessment & Plan Problem List: (1) Adjustment reaction with mixed disturbance of emotions and conduct ICD Code: F43.25 (2) Cocaine abuse, uncomplicated ICD Code: F14.10 Assessment & Plan Pt improving. Continue current tx plan. Estimated LOS: days Justification for Cont. Inpt. observation for medication titration and safety Juliette Mock MD Jan 29, 2017 12:53
[2017-01-29] MEDS: LORazepam 1 MG TAB PO PRN ×2 (13:13→16:47)
[2017-01-29] MEDS: CHOLECALCIFEROL (VIT D3) 5000 UNIT CAP PO SCH (13:30)
[2017-01-29 17:19] VITALS: BP 131/60; PULSE 102; RESP 18; TEMP 97.7; O2SAT 92
[2017-01-29] MEDS: OLANZapine 10 MG TAB PO SCH (20:41)
[2017-01-29] MEDS: REMOVE OLD NICOTINE PATCH T-DERMAL SCH (20:43)
[2017-01-29] MEDS: diphenhydrAMINE HCL 50 MG CAP - HS PRN PO (21:29)
[2017-01-29] MEDS: hydrOXYzine HCL 50 MG TAB PO PRN (22:32)
[2017-01-30 05:52] VITALS: BP 136/60; PULSE 100; RESP 17; TEMP 97.9; O2SAT 96
[2017-01-30] MEDS: hydrOXYzine HCL 50 MG TAB PO PRN ×3 (08:15→16:51)
[2017-01-30] MEDS: LISINOPRIL 20 MG TAB PO SCH (08:15)
[2017-01-30] MEDS: metFORMIN HCL 500 MG TAB PO SCH (08:15)
[2017-01-30] MEDS: CHOLECALCIFEROL (VIT D3) 5000 UNIT CAP PO SCH (08:15)
[2017-01-30] MEDS: DULoxetine HCl DR 60 MG CAP PO SCH (08:15)
[2017-01-30] MEDS: LORazepam 1 MG TAB PO PRN ×2 (08:19→20:05)
[2017-01-30] MEDS: NICOTINE 21 MG/24 HR PATCH T-DERMAL SCH (09:00)
--- NOTE | 2017-01-30 12:42 | HHI.PYPN ---
Subjective Remarks Pt seen and discussed with staff. Staff report that she has been engaging in medication seeking behaviors on unit. Pt states that she smoked crack a few times but has decided to stop it because "that stuff makes you crazy." She has required redirection from staff to maintain appropriate boundaries and behaviors on unit. She denies SI/HI. No medication side effects. Objective Alert: Yes [place]: Person, Place, Date Mood: Anxious Affect: Labile (decreased) Memory Intact: Immediate, Recent Hallucinations: Other (none) Delusions: No Delusion Type: Other (none elicited) Suicidal: Ideation (denies) Homicidal: Ideation (denies) Insight/Judgement poor Vitals/IOs Vital Signs Date Time Temp Pulse Resp B/P Pulse Ox O2 Delivery O2 Flow Rate FiO2 01/30/17 05:52 97.9 100 17 136/60 96 01/27/17 22:13 Room Air Assessment & Plan Problem List: (1) Adjustment reaction with mixed disturbance of emotions and conduct ICD Code: F43.25 (2) Cocaine abuse, uncomplicated ICD Code: F14.10 Assessment & Plan Pt improving. Continue current tx plan. Estimated LOS: days Justification for Cont. Inpt. impairments in social functioning due to mood lability Juliette Mock MD Jan 30, 2017 12:41
--- NOTE | 2017-01-30 14:06 | HHI.PR ---
Subjective Remarks Follow up visit PTSD, HTN, COPD, anxiety, depression, DM2, HLD. Pt. seen today. Reports she is doing "okay." States she is tired, had a shower this am. Discuss result of lab reports. States she has cholesterol problem since before and taking lipitor but states she didn't know why she stopped taking the medication. Otherwise, Denies pain and discomfort. Denies SOB/ dyspnea. Denies chest pain, palpitations, headaches, dizziness. Denies fevers, chills, n/ v/d. Objective Vitals Vital Signs Date Time Temp Pulse Resp B/P Pulse Ox O2 Delivery O2 Flow Rate FiO2 01/30/17 05:52 97.9 100 17 136/60 96 01/29/17 17:19 97.7 102 18 131/60 92 Result Diagram: 01/27/17 1425 01/28/17 0614 Objective Remarks GENERAL: This is a overweight, well-developed patient, in no apparent distress. SKIN: Warm and dry. CARDIOVASCULAR: Regular rate and rhythm without murmurs, gallops, or rubs. RESPIRATORY: Bilateral expiratory wheezes noted tracks as GASTROINTESTINAL: Abdomen soft, non-tender, nondistended. Normal active bowel sounds. Umbilical hernia present. MUSCULOSKELETAL: Extremities without clubbing, cyanosis, or edema. NEURO: Alert & awake. No focal neuro deficit. Moves all ext x4. A/P Problem List: (1) Substance induced mood disorder ICD Code: F19.94 Status: Acute Assessment and Plan Pt. 51-year-old female with a reported history of depression, PTSD, hypertension , COPD, anxiety, depression, diabetes admitted to the psychiatric unit. On presentation to the emergency room, she reported suicidal ideation. Admitted to in patient psychiatry unit. Consulted for medical management. PTSD/substance-induced mood disorder: - Management per psychiatry. - Counseled patient about cessation of illicit drugs. Hypertension: - Resume home dose lisinopril. Monitor BP trend. - Clonidine as needed Diabetes: - Resume home dose metformin. - hemoglobin A1c 6.3 Reported history of COPD: Patient with bilateral expiratory wheezes. Start scheduled nebulizations. Oxygen as needed. Consider steroids HLD - ASCVD 10 year risk 9.9%, recommended High intensity statin - Start Lipitor 40mg daily - Discuss risks and benefits with patient. Agreed to take the medication. Tobacco abuse: - Nicotine patch as needed - Patient counseled about tobacco use cessation DVT Prop Ambulatory Will sign off tomorrow if patient continues to be stable today Written by Scooter Ann, acting as scribe for Dr. Catherine on 01/30/17 at 14:29. All or portions of this note were transcribed by scribe Scooter Ann. I, Dr. Dangelo Catherine personally performed the history, physical exam, and medical decision making; and confirmed the accuracy of the information in the transcribed note. Authenticated by Dr. Dangelo Catherine on 01/30/17 at 15:14. Scooter Méndez Jan 30, 2017 14:06 Dangelo Catherine MD Jan 30, 2017 15:15
[2017-01-30] MEDS ORDERED: RESP: ALBUTEROL 2.5 MG/IPRATROPIUM 0.5 MG NEB (PRN) NEB (16:00)
[2017-01-30 18:31] VITALS: BP 134/65; PULSE 108; RESP 18; TEMP 98.2; O2SAT 95
[2017-01-30] MEDS: OLANZapine 10 MG TAB PO SCH (20:23)
[2017-01-30] MEDS: ATORVASTATIN 40 MG TAB PO SCH (20:23)
[2017-01-30] MEDS: ALBUTEROL SULFATE 90 MCG/ACT HFA 8 GM INHALER INH SCH (21:00)
[2017-01-30] MEDS: diphenhydrAMINE HCL 50 MG CAP - HS PRN PO (22:44)
[2017-01-31] MEDS: hydrOXYzine HCL 50 MG TAB PO PRN ×2 (01:53→09:05)
[2017-01-31 05:54] VITALS: BP 138/74; PULSE 109; RESP 16; TEMP 97.4; O2SAT 93
[2017-01-31] MEDS: metFORMIN HCL 500 MG TAB PO SCH (08:29)
[2017-01-31] MEDS: DULoxetine HCl DR 60 MG CAP PO SCH (08:29)
[2017-01-31] MEDS: ALBUTEROL SULFATE 90 MCG/ACT HFA 8 GM INHALER INH SCH ×2 (08:29→20:21)
[2017-01-31] MEDS: CHOLECALCIFEROL (VIT D3) 5000 UNIT CAP PO SCH (08:29)
[2017-01-31] MEDS: LISINOPRIL 20 MG TAB PO SCH (08:29)
--- NOTE | 2017-01-31 16:09 | HHI.PYPN ---
Subjective Remarks Patient seen and examined. Chart reviewed. Case discussed with nursing staff. Patient was briefly trialed over on the lower acuity unit but could not tolerate the milieu there and began to escalate and so was transferred back to the 2700 unit. On my examination today, the patient presents as rambling and pressured. Some loosening of associations present. She does say that she feels improved in the sense that she is "not depressed anymore" but she still is struggling with significant irritability. She is agreeable to titrating her Zyprexa. She would like to switch her Atarax to Vistaril as she feels the Vistaril is more efficacious. Denies side effects from medications. Review of Systems Except as stated in HPI: all other systems reviewed are Neg Objective Alert: Yes [place]: Person, Place, Date Mood: Anxious (remains anxious and irritable) Affect: Labile Memory Intact: Comment (not formally assessed) Hallucinations: Other (none) Delusions: No Delusion Type: Other (no delusions) Suicidal: Ideation (no SI) Homicidal: Ideation (denies) Insight/Judgement Poor Remarks No motor abnormalities noted. Steady gait and station. Grooming and hygiene fair. Thought process as above. Labs Labs reviewed. Vitals/IOs Vital Signs Date Time Temp Pulse Resp B/P Pulse Ox O2 Delivery O2 Flow Rate FiO2 01/31/17 05:54 97.4 109 16 138/74 93 01/27/17 22:13 Room Air Assessment & Plan Problem List: (1) Adjustment reaction with mixed disturbance of emotions and conduct Assessment & Plan: R/o some degree of bipolar illness, presently mixed. ICD Code: F43.25 (2) Cocaine abuse, uncomplicated ICD Code: F14.10 Assessment & Plan Titrate Zyprexa to 15mg qHS for mood stabilization. Add 2.5mg dose Zyprexa tomorrow morning for daytime coverage. Replace Atarax with Vistaril per patient preference. Patient's antidepressant may be activating; to consider discontinuing. Retain patient on high acuity unit for now. Hospitalist senior consumer insights consultant input noted and appreciated. Continue other medications and care as ordered. Justification for Cont. Inpt. Impairment in social function. Medication changes in process. High risk for decompensation in a less restrictive level of care. Discharge Planning Pending psychiatric stabilization Request HC Surrog/Guard Advoc?: No Alcon Rodriguez MD Jan 31, 2017 16:09
--- NOTE | 2017-01-31 16:17 | HHI.PR ---
Subjective Remarks Follow up visit PTSD, HTN, COPD, anxiety, depression, DM2, HLD. Pt. seen today. Improved wheezing and breathing with nebulization. Counseled with smoking cessation. Patient states that she will highly likely to smoke again once she gets out of the unit. Otherwise, Denies pain and discomfort. Denies SOB/ dyspnea. Denies chest pain, palpitations, headaches, dizziness. Denies fevers, chills, n/v/d. Objective Vitals Vital Signs Date Time Temp Pulse Resp B/P Pulse Ox O2 Delivery O2 Flow Rate FiO2 01/31/17 05:54 97.4 109 16 138/74 93 01/30/17 18:31 98.2 108 18 134/65 95 Result Diagram: 01/27/17 1425 01/28/17 0614 Objective Remarks GENERAL: This is a overweight, well-developed patient, in no apparent distress. SKIN: Warm and dry. CARDIOVASCULAR: Regular rate and rhythm without murmurs, gallops, or rubs. RESPIRATORY: Improved wheezing. Decreased breath sounds. GASTROINTESTINAL: Abdomen soft, non-tender, nondistended. Normal active bowel sounds. Umbilical hernia present. MUSCULOSKELETAL: Extremities without clubbing, cyanosis, or edema. NEURO: Alert & awake. No focal neuro deficit. Moves all ext x4. A/P Problem List: (1) Substance induced mood disorder ICD Code: F19.94 Status: Acute Assessment and Plan Pt. 51-year-old female with a reported history of depression, PTSD, hypertension , COPD, anxiety, depression, diabetes admitted to the psychiatric unit. On presentation to the emergency room, she reported suicidal ideation. Admitted to in patient psychiatry unit. Consulted for medical management. PTSD/substance-induced mood disorder: - Management per psychiatry. - Counseled patient about cessation of illicit drugs. Hypertension: - Resume home dose lisinopril. Clonidine 0.1 mg when necessary. Monitor BP trend. - Clonidine as needed Tachycardia - Possibly related to anxiety, and substance abuse withdrawal - Continue to monitor Diabetes: - Resume home dose metformin. - hemoglobin A1c 6.3 Reported history of COPD: Not in exacerbation - breathing treatments as needed. - Proair BID HLD - ASCVD 10 year risk 9.9%, recommended High intensity statin - Start Lipitor 40mg daily - Discuss risks and benefits with patient. Agreed to take the medication. Tobacco abuse: - Nicotine patch as needed - Patient counseled about tobacco use cessation - Patient states she will likely use tobacco again when she gets out of the unit. Discuss risk including but not limited to respiratory failure, . Verbalized understanding. DVT Prop Ambulatory Stable from Hospitalist standpoint. We will sign off. Reconsult as needed. Written by Scooter Ann, acting as scribe for Dr. Catherine on 01/31/17 at 16:15. All or portions of this note were transcribed by scribe Scooter Ann I, Dr. Dangelo Catherine personally performed the history, physical exam, and medical decision making; and confirmed the accuracy of the information in the transcribed note. Authenticated by Dr. Dangelo Catherine on 01/31/17 at 16:24. Scooter Méndez Jan 31, 2017 16:17 Dangelo Catherine MD Jan 31, 2017 16:24
[2017-01-31 18:00] VITALS: BP 120/79; PULSE 96; RESP 18; TEMP 97.9; O2SAT 95
[2017-01-31] MEDS: diphenhydrAMINE HCL 50 MG CAP - HS PRN PO (20:21)
[2017-01-31] MEDS: ATORVASTATIN 40 MG TAB PO SCH (20:21)
[2017-01-31] MEDS: ACETAMINOPHEN 325 MG TAB PO PRN (20:44)
[2017-01-31] MEDS ORDERED: traZODone HCL 100 MG TAB PO PRN ×2 (23:30)
[2017-02-01] MEDS: ACETAMINOPHEN 325 MG TAB PO PRN ×2 (04:06→09:35)
[2017-02-01 06:01] VITALS: BP 153/65; PULSE 97; RESP 18; TEMP 97.3; O2SAT 96
[2017-02-01] MEDS: LISINOPRIL 20 MG TAB PO SCH (09:00)
[2017-02-01] MEDS: DULoxetine HCl DR 60 MG CAP PO SCH (09:28)
[2017-02-01] MEDS: OLANZapine 2.5 MG TAB PO SCH (09:29)
[2017-02-01] MEDS: CHOLECALCIFEROL (VIT D3) 5000 UNIT CAP PO SCH (09:29)
[2017-02-01] MEDS: metFORMIN HCL 500 MG TAB PO SCH (09:29)
[2017-02-01] MEDS: ALBUTEROL SULFATE 90 MCG/ACT HFA 8 GM INHALER INH SCH ×2 (09:32→20:01)
--- NOTE | 2017-02-01 12:01 | HHI.PYPN ---
Subjective Remarks Patient seen and examined. Chart reviewed. Case discussed in treatment team with nurse, counselor and occupational therapist. Per nursing, patient has been medication compliant if somewhat somatizing. Counselor reports that the patient is desirous of assisted living placement and has the income to support this. On my examination today, the patient reports ongoing difficulties with mood lability and irritability. She says "I feel like hate is inside of me. I don't want to be alive." She denies any active urge to hurt herself, for example on the inpatient unit. She continues to complain of difficulties with sleep. We discussed previous medication trials, and the patient notes that she has tried several mood stabilizers before, but this is when she was actively drinking and so she is not sure if these were valid trials. We discuss risks and benefits of possible medication adjustments to improve patient's symptoms and settle on those listed below. Review of Systems Except as stated in HPI: all other systems reviewed are Neg Other Patient reports issues with nocturnal urinary incontinence 8 years. Objective Alert: Yes [place]: Person, Place, Date Mood: Anxious Affect: Labile Memory Intact: Comment (not formally assessed) Hallucinations: Other (no AVH) Delusions: No Delusion Type: Other (no delusions) Suicidal: Ideation (denies SI but doesn't want to live this way) Homicidal: Ideation (no HI) Insight/Judgement Fair Remarks No motor abnormalities noted. Thought process more linear today. Speech within normal limits for rate, tone and volume. Grooming and hygiene fair. Labs Labs reviewed. No new labs. Vitals/IOs Vital Signs Date Time Temp Pulse Resp B/P Pulse Ox O2 Delivery O2 Flow Rate FiO2 02/01/17 06:01 97.3 97 18 153/65 96 Assessment & Plan Problem List: (1) Bipolar disorder ICD Code: F31.9 (2) Cocaine abuse, uncomplicated ICD Code: F14.10 Assessment & Plan I do suspect there is some degree of bipolar diathesis at play here, and I have adjusted the diagnosis accordingly. Taper Cymbalta to 30mg daily with plans to discontinue as I am concerned that this is exacerbating irritability. Add Depakote 250 mg twice daily with plans to titrate to target mood lability. LFTs and platelets okay. Plan to check a level after the appropriate interval. I will probably hold off on checking a level until we titrated the patient to a dose likely to be within the therapeutic range. Add Ambien 5 mg at bedtime as needed for sleep. Continue Zyprexa as ordered with plans to titrate. Continue to monitor on the high acuity unit. Continue other medications and care as ordered. Justification for Cont. Inpt. Concern for impairment in safety. Medication changes and process. Risk for decompensation pending psychiatric stabilization. Discharge Planning Pending psychiatric stabilization. Request HC Surrog/Guard Advoc?: No Problem Qualifiers (1) Bipolar disorder: Qualified Code: F31.32 - Bipolar affective disorder, currently depressed, moderate Alcon Rodriguez MD Feb 01, 2017 12:01
[2017-02-01 17:36] VITALS: BP 155/72; PULSE 100; RESP 18; TEMP 97.9; O2SAT 98
[2017-02-01] MEDS: diphenhydrAMINE HCL 50 MG CAP - HS PRN PO (20:01)
[2017-02-01] MEDS: ATORVASTATIN 40 MG TAB PO SCH (20:01)
[2017-02-01] MEDS: DIVALPROEX SODIUM DELAYED RELEASE 250 MG TAB PO SCH (20:02)
[2017-02-01] MEDS: ZOLPIDEM TARTRATE 5 MG TAB PO PRN (21:23)
[2017-02-02] MEDS: ACETAMINOPHEN 325 MG TAB PO PRN ×3 (03:11→08:48)
[2017-02-02 06:04] VITALS: BP 115/67; PULSE 92; RESP 18; TEMP 97.6; O2SAT 92
[2017-02-02] MEDS: DIVALPROEX SODIUM DELAYED RELEASE 250 MG TAB PO SCH ×2 (08:47→20:21)
[2017-02-02] MEDS: OLANZapine 2.5 MG TAB PO SCH (08:47)
[2017-02-02] MEDS: metFORMIN HCL 500 MG TAB PO SCH (08:47)
[2017-02-02] MEDS: CHOLECALCIFEROL (VIT D3) 5000 UNIT CAP PO SCH (08:47)
[2017-02-02] MEDS: ALBUTEROL SULFATE 90 MCG/ACT HFA 8 GM INHALER INH SCH ×2 (08:48→20:21)
[2017-02-02] MEDS: LISINOPRIL 20 MG TAB PO SCH (09:00)
[2017-02-02] MEDS ORDERED: DULoxetine HCl DR 30 MG CAP PO SCH (09:00)
--- NOTE | 2017-02-02 11:30 | HHI.PYPN ---
Subjective Remarks Patient seen and examined. Chart reviewed. Case discussed with nursing staff who reports patient was good on afternoons yesterday but had an episode of agitation yesterday evening. She also had a behavioral outburst this morning. Nursing staff does note that the patient was fairly easily de-escalated. On my examination today, patient acknowledges the ongoing issues with irritability and behavioral disturbance. She does say that she slept better with Ambien. No SI or HI. Denies side effects from medications. Remains somewhat medication seeking for Ativan. Agreeable to further medication adjustments as detailed below. Review of Systems ROS Limitations: Poor Historian Except as stated in HPI: all other systems reviewed are Neg Objective Alert: Yes [place]: Person, Place, Date Mood: Anxious (irritable) Affect: Labile Memory Intact: Comment (not formally assessed) Hallucinations: Other (no AVH) Delusions: No Delusion Type: Other (none elicited) Suicidal: Ideation (no SI) Homicidal: Ideation (no HI) Insight/Judgement Fair Remarks No motor abnormalities noted. Thought process linear. Speech within normal limits for rate, tone and volume. Labs Labs reviewed. Vitals/IOs Vital Signs Date Time Temp Pulse Resp B/P Pulse Ox O2 Delivery O2 Flow Rate FiO2 417 06:04 97.6 92 18 115/67 92 Assessment & Plan Problem List: (1) Bipolar disorder ICD Code: F31.9 (2) Cocaine abuse, uncomplicated ICD Code: F14.10 Assessment & Plan Discontinue Cymbalta. Titrate Depakote 500 mg twice daily. Plan to check a level after the appropriate interval. Titrate Zyprexa to 5 mg in the morning and 15 mg at bedtime. Continue other medications as ordered. Continue to monitor on the inpatient unit. Continue other care as ordered. Justification for Cont. Inpt. Impairment in social functioning. Medication changes and process. High risk for decompensation pending psychiatric stabilization. Discharge Planning Pending psychiatric stabilization. Request HC Surrog/Guard Advoc?: No Problem Qualifiers (1) Bipolar disorder: Qualified Code: F31.32 - Bipolar affective disorder, currently depressed, moderate Alcon Rodriguez MD Feb 02, 2017 11:30
[2017-02-02] MEDS ORDERED: PILL SPLITTER OTHER PRN (12:30)
[2017-02-02 17:55] VITALS: BP 147/77; PULSE 107; RESP 18; TEMP 97.5; O2SAT 91
[2017-02-02] MEDS: ATORVASTATIN 40 MG TAB PO SCH (20:20)
[2017-02-02] MEDS: ZOLPIDEM TARTRATE 5 MG TAB PO PRN (20:20)
[2017-02-02] MEDS: diphenhydrAMINE HCL 50 MG CAP - HS PRN PO (20:20)
[2017-02-03] MEDS: ACETAMINOPHEN 325 MG TAB PO PRN ×3 (03:50→22:56)
[2017-02-03 05:59] VITALS: BP 129/77; PULSE 100; RESP 18; TEMP 97.4; O2SAT 98
[2017-02-03] MEDS: ALBUTEROL SULFATE 90 MCG/ACT HFA 8 GM INHALER INH SCH ×2 (08:17→20:40)
[2017-02-03] MEDS: DIVALPROEX SODIUM DELAYED RELEASE 250 MG TAB PO SCH ×2 (08:18→20:41)
[2017-02-03] MEDS: CHOLECALCIFEROL (VIT D3) 5000 UNIT CAP PO SCH (08:18)
[2017-02-03] MEDS: OLANZapine 2.5 MG TAB PO SCH (08:19)
[2017-02-03] MEDS: metFORMIN HCL 500 MG TAB PO SCH (08:19)
[2017-02-03] MEDS: LISINOPRIL 20 MG TAB PO SCH (08:25)
--- NOTE | 2017-02-03 10:04 | HHI.PYPN ---
Subjective Remarks Patient seen and examined with counselor and nurse. Chart reviewed. Case discussed with nursing staff who reports patient remains somewhat irritable and entitled. On my examination today, the patient says that she "wake[s] up pissed off and go[es] to sleep pissed off." She notes that she is having a better morning so far today. Counselor discussed with patient that she goes to sleep ruminating on her difficulties with her family, and this might explain her irritability upon arising. Denies side effects from medications. Feels like current combination is working well. Review of Systems Except as stated in HPI: all other systems reviewed are Neg Objective Alert: Yes [place]: Person, Place, Date Mood: Calm Affect: Appropriate Memory Intact: Comment (Intact on clinical exam.) Hallucinations: Other (no AVH) Delusions: No Delusion Type: Other (No delusions) Suicidal: Ideation (No SI) Homicidal: Ideation (No HI) Insight/Judgement Poor Remarks No motor abnormalities noted. Thought process linear. Speech within normal limits for rate, tone and volume. Labs Labs reviewed. Vitals/IOs Vital Signs Date Time Temp Pulse Resp B/P Pulse Ox O2 Delivery O2 Flow Rate FiO2 02/03/17 05:59 97.4 100 18 129/77 98 Assessment & Plan Problem List: (1) Bipolar disorder ICD Code: F31.9 (2) Cocaine abuse, uncomplicated ICD Code: F14.10 Assessment & Plan Continue Zyprexa 5/15 mg. Continue Depakote 500 mg twice daily. Plan to check a Depakote and ammonia level Tuesday morning. Continue Ambien as needed for sleep. Continue to monitor on the inpatient unit. Continue other medications and care as ordered. Justification for Cont. Inpt. High risk for decompensation in a less restrictive environment. Discharge Planning Plan is presently for assisted living placement. Counselor is sending out referrals. Request HC Surrog/Guard Advoc?: No Problem Qualifiers (1) Bipolar disorder: Qualified Code: F31.32 - Bipolar affective disorder, currently depressed, moderate Alcon Rodriguez MD Feb 03, 2017 10:04
[2017-02-03 17:58] VITALS: BP 125/62; PULSE 101; RESP 18; TEMP 98.1; O2SAT 93
[2017-02-03] MEDS: ATORVASTATIN 40 MG TAB PO SCH (20:42)
[2017-02-03] MEDS: ZOLPIDEM TARTRATE 5 MG TAB PO PRN (20:43)
[2017-02-03] MEDS: diphenhydrAMINE HCL 50 MG CAP - HS PRN PO (22:58)
[2017-02-04 05:49] VITALS: BP 133/79; PULSE 111; RESP 18; TEMP 99.5; O2SAT 96
[2017-02-04] MEDS: ALBUTEROL SULFATE 90 MCG/ACT HFA 8 GM INHALER INH SCH ×2 (08:34→21:50)
[2017-02-04] MEDS: DIVALPROEX SODIUM DELAYED RELEASE 250 MG TAB PO SCH ×2 (08:35→20:11)
[2017-02-04] MEDS: CHOLECALCIFEROL (VIT D3) 5000 UNIT CAP PO SCH (08:35)
[2017-02-04] MEDS: LISINOPRIL 20 MG TAB PO SCH (08:35)
[2017-02-04] MEDS: metFORMIN HCL 500 MG TAB PO SCH (08:35)
[2017-02-04] MEDS: OLANZapine 2.5 MG TAB PO SCH (08:35)
--- NOTE | 2017-02-04 11:35 | HHI.PYPN ---
Subjective Remarks Continues to be irritable, depressed and withdrawn. Little energy and little motivation. He did not wish to speak with this physician. Minimal communication. Review of Systems ROS Limitations: Clinical Condition Objective Alert: Yes [place]: Person, Place, Date Mood: Depressed Affect: Restricted Memory Intact: Comment (Intact on clinical exam.) Hallucinations: Other (no AVH) Delusions: No Delusion Type: Other (No delusions) Suicidal: Ideation (No SI) Homicidal: Ideation (No HI) Insight/Judgment Remains impaired. Vitals/IOs Vital Signs Date Time Temp Pulse Resp B/P Pulse Ox O2 Delivery O2 Flow Rate FiO2 02/04/17 05:49 99.5 111 18 133/79 96 Assessment & Plan Problem List: (1) Bipolar disorder ICD Code: F31.9 (2) Cocaine abuse, uncomplicated ICD Code: F14.10 Assessment & Plan Estimated LOS: 5 days patient continues to need time for the mood stabilizing medication to work. Justification for Cont. Inpt. Unable to care for herself. Request HC Surrog/Guard Advoc?: No Problem Qualifiers (1) Bipolar disorder: Qualified Code: F31.32 - Bipolar affective disorder, currently depressed, moderate López Jovel MD Feb 04, 2017 11:35
[2017-02-04] MEDS ORDERED: HALOPERIDOL LACTATE 5 MG/ML AMP IM STA (17:25)
[2017-02-04] MEDS ORDERED: diphenhydrAMINE HCL 50 MG/ML VIAL IM STA (17:25)
[2017-02-04 18:58] VITALS: BP 106/53; PULSE 109; RESP 18; TEMP 97.9; O2SAT 88
[2017-02-04] MEDS: ATORVASTATIN 40 MG TAB PO SCH (20:11)
[2017-02-04] MEDS: diphenhydrAMINE HCL 50 MG CAP - HS PRN PO (20:11)
[2017-02-05 05:48] VITALS: BP 109/58; PULSE 97; RESP 20; TEMP 98; O2SAT 98
[2017-02-05] MEDS: DULoxetine HCl DR 30 MG CAP PO SCH (09:02)
[2017-02-05] MEDS: CHOLECALCIFEROL (VIT D3) 5000 UNIT CAP PO SCH (09:02)
[2017-02-05] MEDS: ALBUTEROL SULFATE 90 MCG/ACT HFA 8 GM INHALER INH SCH ×2 (09:02→22:20)
[2017-02-05] MEDS: DIVALPROEX SODIUM DELAYED RELEASE 250 MG TAB PO SCH ×2 (09:03→22:20)
[2017-02-05] MEDS: OLANZapine 2.5 MG TAB PO SCH (09:03)
[2017-02-05] MEDS: LISINOPRIL 20 MG TAB PO SCH (09:03)
[2017-02-05] MEDS: metFORMIN HCL 500 MG TAB PO SCH (09:03)
[2017-02-05] MEDS: ACETAMINOPHEN 325 MG TAB PO PRN ×2 (09:04→17:26)
[2017-02-05 17:00] VITALS: BP 99/55; PULSE 99; RESP 20; TEMP 97.7; O2SAT 94
--- NOTE | 2017-02-05 17:43 | HHI.PYPN ---
Subjective Remarks Patient was seen and case discussed with nursing. Patient remains irritable with poor insight. Various complaints about her medications and the doctors here. Says her suicidal ideation has resolved that she remains angry. Minimizes her drug use. We discussed the possibility of a personality disorder which upset her. Denies psychotic symptoms Objective Alert: Yes [place]: Person, Place, Date Mood: Depressed, Oppositional Affect: Labile Memory Intact: Comment (not checked today) Hallucinations: Other (no AVH) Delusions: No Delusion Type: Other (No delusions) Suicidal: Ideation (No SI) Homicidal: Ideation (No HI) Insight/Judgment Poor Vitals/IOs Vital Signs Date Time Temp Pulse Resp B/P Pulse Ox O2 Delivery O2 Flow Rate FiO2 02/05/17 17:00 97.7 99 20 99/55 94 Assessment & Plan Problem List: (1) Bipolar disorder ICD Code: F31.9 (2) Cocaine abuse, uncomplicated ICD Code: F14.10 Assessment & Plan Continue current treatment plan Justification for Cont. Inpt. Patient will decompensate in a less restrictive setting Request HC Surrog/Guard Advoc?: No Problem Qualifiers (1) Bipolar disorder: Qualified Code: F31.32 - Bipolar affective disorder, currently depressed, moderate Brendan Reed DO Feb 05, 2017 17:43
[2017-02-05] MEDS: diphenhydrAMINE HCL 50 MG CAP - HS PRN PO (22:21)
[2017-02-05] MEDS: ATORVASTATIN 40 MG TAB PO SCH (22:21)
[2017-02-05] MEDS: ZOLPIDEM TARTRATE 5 MG TAB PO PRN (22:25)
[2017-02-06 05:45] VITALS: BP 97/55; PULSE 97; RESP 20; TEMP 98.9; O2SAT 100
[2017-02-06] MEDS: LISINOPRIL 20 MG TAB PO SCH (08:31)
[2017-02-06] MEDS: DULoxetine HCl DR 30 MG CAP PO SCH (09:13)
[2017-02-06] MEDS: CHOLECALCIFEROL (VIT D3) 5000 UNIT CAP PO SCH (09:13)
[2017-02-06] MEDS: DIVALPROEX SODIUM DELAYED RELEASE 250 MG TAB PO SCH ×2 (09:13→20:47)
[2017-02-06] MEDS: OLANZapine 2.5 MG TAB PO SCH (09:13)
[2017-02-06] MEDS: metFORMIN HCL 500 MG TAB PO SCH (09:13)
[2017-02-06] MEDS: ALBUTEROL SULFATE 90 MCG/ACT HFA 8 GM INHALER INH SCH ×2 (09:14→20:48)
--- NOTE | 2017-02-06 18:45 | HHI.PYPN ---
Subjective Remarks Patient was seen and case discussed nursing. Depakote level is 63 pneumonia is a 30. Patient remains irritable with multiple complaints. Per nursing she was cursing at other patients earlier. Says she is the same as when she came in but does admits that her suicidal ideation has resolved. Compliant with medications Objective Alert: Yes [place]: Person, Place, Date Mood: Angry, Oppositional Affect: Labile Memory Intact: Comment (not checked today) Hallucinations: Other (no AVH) Delusions: No Delusion Type: Other (No delusions) Suicidal: Ideation (No SI) Homicidal: Ideation (No HI) Insight/Judgment Poor Labs Test 02/06/17 07:50 Ammonia 30 MCMOL/L Valproic Acid (Depakene) Level 63 MCG/ML Vitals/IOs Vital Signs Date Time Temp Pulse Resp B/P Pulse Ox O2 Delivery O2 Flow Rate FiO2 02/06/17 05:45 98.9 97 20 97/55 100 Assessment & Plan Problem List: (1) Bipolar disorder ICD Code: F31.9 (2) Cocaine abuse, uncomplicated ICD Code: F14.10 Assessment & Plan Continue current treatment plan Justification for Cont. Inpt. Patient will decompensate in a less restrictive setting Request HC Surrog/Guard Advoc?: No Problem Qualifiers (1) Bipolar disorder: Qualified Code: F31.32 - Bipolar affective disorder, currently depressed, moderate Brendan Reed DO Feb 06, 2017 18:45
[2017-02-06] MEDS: ZOLPIDEM TARTRATE 5 MG TAB PO PRN (20:47)
[2017-02-06] MEDS: ATORVASTATIN 40 MG TAB PO SCH (20:48)
[2017-02-06] MEDS: diphenhydrAMINE HCL 50 MG CAP - HS PRN PO (20:49)
[2017-02-07 06:13] VITALS: BP 112/56; PULSE 92; RESP 18; TEMP 97.2; O2SAT 96
[2017-02-07] MEDS: ACETAMINOPHEN 325 MG TAB PO PRN (07:20)
[2017-02-07] MEDS: LISINOPRIL 20 MG TAB PO SCH (08:40)
[2017-02-07] MEDS: OLANZapine 2.5 MG TAB PO SCH (08:40)
[2017-02-07] MEDS: DULoxetine HCl DR 30 MG CAP PO SCH (08:40)
[2017-02-07] MEDS: DIVALPROEX SODIUM DELAYED RELEASE 250 MG TAB PO SCH (08:40)
[2017-02-07] MEDS: ALBUTEROL SULFATE 90 MCG/ACT HFA 8 GM INHALER INH SCH (08:40)
[2017-02-07] MEDS: CHOLECALCIFEROL (VIT D3) 5000 UNIT CAP PO SCH (08:40)
[2017-02-07] MEDS: metFORMIN HCL 500 MG TAB PO SCH (08:40)
[2017-02-07] MEDS ORDERED: ZYPR5TAB PO (10:42)
[2017-02-07] MEDS ORDERED: ATOR40TA16 PO (10:42)
[2017-02-07] MEDS ORDERED: DULO1CAP2 PO (10:42)
[2017-02-07] MEDS ORDERED: CHOL5000 PO (10:42)
[2017-02-07] MEDS ORDERED: DIVA250T PO (10:42)
--- NOTE | 2017-02-07 10:43 | HHI.DS ---
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 Phelps is a 51-year-old female with a reported history of depression and anxiety who presented to the emergency department requesting psychiatric evaluation. She told the ED provider that she had been off of her Zyprexa and Cymbalta for a week and was having suicidal and homicidal ideations. She apparently went to [facility] and had a poor interaction with a staff member there and so came to our ED instead. Reviewing the electronic medical record, I see no prior psychiatric contact within our system. I do see that the patient was somewhat agitated overnight and required Zyprexa p.r.n. The patient seen and examined with nurse. Chart reviewed. Case discussed with nursing staff. 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 She tells me "I just need to get back on my meds." Her speech is a little bit pressured and rambling and she complains of feeling somewhat anxious. She also complains of irritability. She does not describe any suicidal or homicidal ideation at this time, but says that she might have been experiencing some of these last night. She is fairly benzodiazepine seeking and says that the Xanax that she used to take really helped with this problem. She denies any audiovisual hallucinations and I can elicit no delusional beliefs. The remainder of the psychiatric ROS is negative. Tobacco Use In Past 30 Days: Refused To Answer Alcohol Use: Never Hospital Course Patient was admitted to a locked, inpatient psychiatric unit. A general medical consultation was obtained. Appropriate precautions were in place throughout patient's hospital stay. Patient was seen and examined daily on the unit by psychiatry and also visited by counselor. Medications were adjusted. Patient tolerated medications well without side effects. Patient had some improvement in her presenting psychiatric symptomatology. She was noted to be fairly demanding and entitled on the inpatient unit. She was noted to be somewhat medication seeking, particularly for benzodiazepines. There was no evidence of any suicidality or homicidality on the inpatient unit. On the day of discharge: Patient seen and examined with counselor and nurse. Chart reviewed. Case discussed with nursing staff who reports patient remains entitled and somewhat irritable but no real behavioral problem. On my examination today, the patient is requesting discharge from the inpatient psychiatric unit. Mood is slightly irritable, but there are no other depressive or hypomanic/manic symptoms otherwise. She denies any suicidal or homicidal ideation. She denies any audiovisual hallucinations and I can elicit no delusional believes. She denies side effects from medications. She has no physical complaints at this time. Counselor did endeavor to arrange for placement as the patient had requested, but counselor informs me that the patient declined the placement offered to her. The patient continues to decline to allow us to assist her any further with placement. She wishes to leave the inpatient psychiatric unit today. Weighing the acute, chronic, and protective factors and based on the available evidence, I clinical laboratory manager to a reasonable degree of medical certainty that the patient is at low imminent risk of harm to self or others from a mental illness as defined under the Tucker act and her level of function is adequate for outpatient care. Consequently, she does not meet criteria for involuntary psychiatric hospitalization. Given that the patient is insisting on discharge from the inpatient psychiatric unit today and given that she does not meet criteria for involuntary psychiatric hospitalization at this time, I must arrange for her discharge today. Patient is to follow-up psychiatrically as arranged by counselor. She is also to follow -up with primary care. I have counseled the patient to abstain from substances of abuse. I counseled patient regarding warning signs for need to return to the psychiatric emergency room as part of a general safety plan. Results Blood Pressure 112 / 56 Vital Signs Date Time Temp Pulse Resp B/P Pulse Ox O2 Delivery O2 Flow Rate FiO2 02/07/17 06:13 97.2 92 18 112/56 96 Laboratory Results Test 02/06/17 07:50 Valproic Acid (Depakene) Level 63 MCG/ML (50-100) Summary of Procedures None done Imaging None done Pending results at discharge: No Medications # of Antipsychotic meds at D/C: 1 Approp Antipsych med options 1 - Minimum of three failed multiple trials of monotherapy. 2 - Documented plan to taper to monotherapy due to previous use of multiple meds OR cross-taper in progress at D/C. 3 - Documentation of augmentation of Clozapine. 4 - Justification other than those listed in allowable values 1-3, document here : Discharge Discharge Date: Feb 07, 2017 Discharge Diagnosis: (1) Bipolar disorder Diagnosis: Principal (improved versus admission. Rule out drug-induced mood disorder.) ICD Code: F31.9 (2) Cocaine abuse, uncomplicated Diagnosis: Secondary (counseled to quit) ICD Code: F14.10 GAF on discharge is 55 Mental Status Exam at Disch Patient is casually dressed. She is fairly well groomed and certainly maintaining basic hygiene. She is awake and alert and oriented 3. No evidence of delirium. No motor abnormalities noted. Speech is within normal limits for rate, tone and volume. Mood is somewhat irritable and affect mildly restricted. Thought process linear. No loosening of associations. No evident delusions. Denies audiovisual hallucinations. Denies suicidal or homicidal ideation. Insight and judgment are fair at best. Pt Condition on Discharge: Stable Discharge Disposition: Discharge Home Discharge Instructions Diet Instructions: Diabetic Diet Activities you can perform: Weight Bearing as [place] Scheduled Appointment: as per counselor's notes New Medications: Olanzapine (Zyprexa) 5 Mg Tab 5 MG PO DIRECTED 5mg PO qAM and 15mg PO qHS. Ok to dispense in other strengths so long as dose is the same. Mental Health Days 15 Ref 1 TAB Atorvastatin (Atorvastatin) 40 Mg Tab 40 MG PO HS Cholesterol Management Days 15 Ref 1 TAB Cholecalciferol (Vitamin D3) 5,000 Unit Cap 5000 UNITS PO DAILY Vitamin D supplement Days 15 Ref [address] (Divalproex DR) 250 Mg Tabdr 500 MG PO BID Mental Health Days 15 Ref [address] (Duloxetine DR) 30 Mg Capdr 30 MG PO DAILY Mental Health Days 15 Ref 1 CAP Hydroxyzine Pamoate (Hydroxyzine Pamoate) 50 Mg Cap 50 MG PO Q4HR PRN ANXIETY #30 Ref 1 CAP Continued Medications: Lisinopril (Lisinopril) 20 Mg Tab 20 MG PO DAILY #30 Ref 0 TAB Metformin (Metformin) 500 Mg Tab 500 MG PO DAILY With a meal Blood Sugar Management #30 Ref 0 TAB Discontinued Medications: Duloxetine DR (Cymbalta DR) 60 Mg Capdr 60 MG PO DAILY #30 Ref 0 CAP Olanzapine (Zyprexa) 5 Mg Tab 5 MG PO DAILY #30 Ref 0 TAB Discharge Time <= 30 minutes Discharge/Advance Care Plan Health Problems: (1) Bipolar disorder (2) Cocaine abuse, uncomplicated Goals to promote your health * To prevent worsening of your condition and complications * To maintain your health at the optimal level Directions to meet your goals Take your medications as prescribed Follow your dietary instruction Follow activity as directed Keep your appointments as scheduled Take your immunizations and boosters as scheduled If your symptoms worsen call your PCP, if no PCP go to Urgent Care Center or Emergency Room For 23/05 questions related to your inpatient stay or results of tests pending at discharge, please contact Dr. Alcon Rodriguez at Smoking is Dangerous to Your Health. Avoid second hand smoking Problem Qualifiers (1) Bipolar disorder: Qualified Code: F31.75 - Bipolar disorder, in partial remission, most recent episode depressed Alcon Rodriguez MD Feb 07, 2017 10:43
[2017-02-07] MEDS ORDERED: HYDR50CA PO (10:56)
== END 2017-02-07 13:15 | disposition home or self-care (01) | DRG 885 ==
LOC: NEPB 12:01 → NEDA 21:55 → H270 22:30 → H260 01-31 10:00 → H270 01-31 15:26
PROVIDERS: ADMIT Psychiatry & Neurology Psychiatry; ATTEND Psychiatry & Neurology Psychiatry
DX: F31.32 Bipolar disorder, current episode depressed, moderate (principal); F03.90 Unspecified dementia, unspecified severity, without behavioral disturbance, psychotic disturbance, mood disturbance, and anxiety; R45.851 Suicidal ideations; F13.239 Sedative, hypnotic or anxiolytic dependence with withdrawal, unspecified; F14.10 Cocaine abuse, uncomplicated; R41.83 Borderline intellectual functioning; F43.25 Adjustment disorder with mixed disturbance of emotions and conduct; J44.9 Chronic obstructive pulmonary disease, unspecified; R45.850 Homicidal ideations; Z59.0 Homelessness; E11.9 Type 2 diabetes mellitus without complications; G47.33 Obstructive sleep apnea (adult) (pediatric); H35.30 Unspecified macular degeneration; I10 Essential (primary) hypertension; F43.10 Post-traumatic stress disorder, unspecified; Z79.84 Long term (current) use of oral hypoglycemic drugs; Z88.1 Allergy status to other antibiotic agents; Z88.0 Allergy status to penicillin; Z91.14 Patient's other noncompliance with medication regimen; F17.210 Nicotine dependence, cigarettes, uncomplicated; F19.94 Other psychoactive substance use, unspecified with psychoactive substance-induced mood disorder; E78.5 Hyperlipidemia, unspecified; K42.9 Umbilical hernia without obstruction or gangrene
CPT/HCPCS: 80048; 80053; 80061; 80164; 80307; 81001; 82140; 82306; 82550; 82607; 83036; 83735; 84100; 84439; 84443; 84550; 85025; 86592; 96372; J1200; J1630; Q0163

== ENCOUNTER 2017-05-05 09:34 | Emergency (ER) | payer SELFPAY ==
[~2017-05-05] VITALS: Ht 152.4 cm; Wt 85.0 kg
[~2017-05-05 09:34] MED LIST changes: +ATOR40TA16 PO; +CHOL5000 PO; -CIPR-9 PO; -CYMB60CA PO; +DIVA250T PO; +DULO1CAP2 PO; +HYDR50CA PO
[2017-05-05 09:37] VITALS: BP 158/86; PULSE 108; RESP 24; TEMP 98; O2SAT 96
[2017-05-05 09:56] VITALS: BP 125/59; PULSE 87; RESP 20; O2SAT 99
--- NOTE | 2017-05-05 11:20 | PD ---
HPI Chief Complaint: Cold / Flu Symptoms Time Seen by Provider: 10:24 Travel History International Travel<30 days: No Contact w/Intl Traveler<30days: No Traveled to known affect area: No History of Present Illness HPI The patient was seen and examined in the presence of the nurse. This patient complains of congestion and runny nose and dry cough. She has history of COPD and still smokes. She denies fever or shortness of breath. Severity is mild PFSH Past Medical History Hx Anticoagulant Therapy: Yes (ASA) Autoimmune Disease: No Anxiety: Yes Depression: Yes Heart Rhythm Problems: No Cancer: No Cardiovascular Problems: Yes (HTN) High Cholesterol: No Chest Pain: No Congestive Heart Failure: No Dementia: Yes Diabetes: Yes (METFORMIN) Patient Takes Glucophage: No Diminished Hearing: No Endocrine: Yes Genitourinary: No Hypertension: Yes Immune Disorder: No Musculoskeletal: No Neurologic: No Psychiatric: Yes Reproductive: No Respiratory: Yes (COPD) Tetanus Vaccination: Unknown Influenza Vaccination: Yes ?: Not Menopausal: Yes Past Surgical History Appendectomy: Yes Section: Yes Cholecystectomy: Yes Hysterectomy: Yes Tonsillectomy: Yes Social History Alcohol Use: No (SOBER 19YRS) Tobacco Use: Yes (1PPD) Substance Use: Yes (smoked crack recently, meth) Allergies-Medications (Allergen,Severity, Reaction): Coded Allergies: Erythromycin (Verified Allergy, Mild, RASH, 05/05/17) Sulfa (Verified Allergy, Mild, RASH, 05/05/17) Reported Meds & Prescriptions Reported Meds & Active Scripts Active Hydroxyzine Pamoate 50 Mg Cap 50 Mg PO Q4HR PRN Duloxetine DR (Duloxetine HCl) 30 Mg Capdr 30 Mg PO DAILY [address] (Divalproex Sodium) 250 Mg Tabdr 500 Mg PO BID 15 Days Atorvastatin (Atorvastatin Calcium) 40 Mg Tab 40 Mg PO HS 15 Days Vitamin D3 (Cholecalciferol) 5,000 Unit Cap 5,000 Units PO DAILY 15 Days Reported Lisinopril 20 Mg Tab 20 Mg PO DAILY Metformin (Metformin HCl) 500 Mg Tab 500 Mg PO DAILY With a meal Review of Systems General / Constitutional: No: Fever HENT: Positive: Congestion, No: Headaches Cardiovascular: No: Chest Pain or Discomfort Respiratory: Positive: Cough Gastrointestinal: No: Vomiting Physical Exam Narrative RESPIRATORY: Respiratory effort unlabored, no retractions or use of accessory muscles. Breath sounds are clear and symmetric. CARDIOVASCULAR: Regular rate and rhythm without murmur. Extremities showed no edema or varicosities. SKIN: Focused skin assessment reveals no rash or ulcers. Skin is warm and dry. Palpation shows no induration or nodules. Data Data Last Documented VS Vital Signs Date Time Temp Pulse Resp B/P Pulse Ox O2 Delivery O2 Flow Rate FiO2 05/05/17 09:56 87 20 125/59 99 Room Air 05/05/17 09:37 98.0 [facility] Medical Decision Making Medical Screen Exam Complete: Yes Emergency Medical Condition: Yes Medical Record Reviewed: Yes Differential Diagnosis URI, bronchitis, COPD Narrative Course I have reviewed the patient's electronic medical record. Patient has room-air saturation 100% with clear lungs. She has viral URI on top of her COPD. Most importantly she needs to quit smoking. She has albuterol inhaler at her disposal if needed Diagnosis Primary Impression: Viral URI with cough Additional Instructions: The patient was advised to follow up with their physician and return if they worsen. Stop smoking Med/Other Pt SpecificInfo: Other Disposition: 01 DISCHARGE HOME Condition: Stable Lauri Rodrigues MD May 05, 2017 11:20
[2017-05-05] MEDS ORDERED: ACETAMINOPHEN 500 MG CPLT PO ONE (11:30)
[2017-05-05 11:42] VITALS: BP 118/64
== END 2017-05-05 11:50 | disposition home or self-care (01) ==
LOC: NEPD 09:34
DX: J06.9 Acute upper respiratory infection, unspecified (principal); I10 Essential (primary) hypertension; E11.9 Type 2 diabetes mellitus without complications; J44.9 Chronic obstructive pulmonary disease, unspecified; F17.210 Nicotine dependence, cigarettes, uncomplicated
CPT/HCPCS: 99281